=== PATIENT | female | born 1980 | race Hispanic/Latino ===

== ENCOUNTER 2017-12-18 12:47 | Emergency (ER) | payer OTHER ==
[2017-12-18] MEDS ORDERED: MOXIFLOXACIN HCL 0.5% 3ML DROPS OP SCH (14:01)
== END 2017-12-18 14:32 | disposition home or self-care (01) ==
LOC: EDH 12:47
DX: H18.822 Corneal disorder due to contact lens, left eye (principal); Z88.0 Allergy status to penicillin

== ENCOUNTER 2018-06-20 15:36 | Emergency (ER) | payer OTHER ==
[2018-06-20] MEDS ORDERED: ONDANSETRON ODT 4 MG TAB ONE (16:29)
[2018-06-20 16:38] LABS: APPEARANCE,URINE Clear (CLEAR); BILIRUBIN,URINE Negative (NEGATIVE); COLOR,URINE Yellow (YELLOW); GLUCOSE, URINE (UA) >=1000 mg/dL (NEGATIVE); KETONES,URINE Negative (NEGATIVE); LEUKOCYTE ESTERASE ,URINE Negative (NEGATIVE); NITRATE,URINE Negative (NEGATIVE); OCCULT BLOOD,URINE Trace (NEGATIVE); PROTEIN,URINE Negative (NEGATIVE); UROBILINOGEN,URINE 0.2 mg/dL (0.2-1.0)
[2018-06-20 16:50] LABS: RAPID GROUP A STREP NEGATIVE (NEGATIVE)
[2018-06-20 17:28] LABS: BACTERIA,URINE Few /HPF (None Seen); SQUAMOUS EPITHELIAL CELL,UR Few /HPF (0-2)
== END 2018-06-20 17:54 | disposition home or self-care (01) ==
LOC: EDH 15:36
DX: K52.9 Noninfective gastroenteritis and colitis, unspecified (principal); B34.9 Viral infection, unspecified; Z88.0 Allergy status to penicillin; Z98.51 Tubal ligation status; Z90.49 Acquired absence of other specified parts of digestive tract; Z72.0 Tobacco use
CPT/HCPCS: 81001; 81025; 87804; 87880

== ENCOUNTER 2018-10-30 21:43 | Emergency (ER) | payer OTHER ==
[2018-10-30 22:07] LABS: BASOPHILS % (AUTO) 0.8 % (0.0-5.0); EOSINOPHILS % (AUTO) 1.7 % (0.0-8.0); HEMATOCRIT 43.8 % (36-48); LYMPHOCYTES % (AUTO) 22.1 % (21.0-51.0); MEAN CORPUSCULAR HEMOGLOBIN 30.7 pg (27.0-33.0); MEAN CORPUSCULAR HGB CONC 33.9 g/dL (32.0-36.0); MEAN CORPUSCULAR VOLUME 90.6 fL (79-99); MONOCYTES % (AUTO) 4.1 % (3.0-13.0); NEUTROPHILS % (AUTO) 71.3 % (40.0-77.0); NUCLEATED RED BLOOD CELLS 0.1 % (0.0-0.19); PLATELET COUNT (AUTO) 269 K/uL (130-400); RED BLOOD CELL COUNT(AUTO) 4.83 MIL/uL (4.00-5.50); RED CELL DISTRIBUTION WIDTH 13.1 % (11.0-15.5); WHITE BLOOD COUNT (AUTO) 14.4 K/uL (4.8-10.8)
[2018-10-30 22:12] LABS: APPEARANCE,URINE Clear (CLEAR); BILIRUBIN,URINE Negative (NEGATIVE); COLOR,URINE Yellow (YELLOW); GLUCOSE, URINE (UA) >=1000 mg/dL (NEGATIVE); KETONES,URINE Negative (NEGATIVE); LEUKOCYTE ESTERASE ,URINE Negative (NEGATIVE); NITRATE,URINE Negative (NEGATIVE); OCCULT BLOOD,URINE Negative (NEGATIVE); PH,URINE 5.5 (5.0-8.0); PROTEIN,URINE POS 1+ mg/dL (NEGATIVE)
[2018-10-30 22:19] LABS: AMPHET/METH SCREEN,URINE POSITIVE (NEGATIVE); BARBITURATE SCREEN, URINE NEGATIVE (NEGATIVE); BENZODIAZEPINES SCREEN,URINE NEGATIVE (NEGATIVE); CANNABINOID SCREEN,URINE POSITIVE (NEGATIVE); COCAINE SCREEN,URINE NEGATIVE (NEGATIVE); OPIATE SCREEN,URINE NEGATIVE (NEGATIVE); PHENCYCLIDINE SCREEN,URINE NEGATIVE (NEGATIVE)
[2018-10-30 22:26] LABS: ALANINE AMINOTRANSFERASE 19 U/L (12-78); ALBUMIN 2.6 g/dL (3.5-5.0); ASPARTATE AMINOTRANSFERASE 12 U/L (10-37); BILIRUBIN,TOTAL 0.2 mg/dL (0.2-1.0); CARBON DIOXIDE 24 mmol/L (21-32); CHLORIDE 100 mmol/L (101-111); CREATINE KINASE, TOTAL 48 U/L (21-232); CREATININE 0.9 mg/dL (0.5-1.5); GLOMERULAR FILTR. RATE CALC 75 mL/min (>60); POTASSIUM 3.8 mmol/L (3.5-5.1); SODIUM SERUM 135 mmol/L (136-145); TOTAL PROTEIN, SERUM 6.1 g/dL (6.0-8.3); UREA NITROGEN, BLOOD 9 mg/dL (7-18)
[2018-10-30 22:30] LABS: ACETAMINOPHEN 34 mcg/mL (10-30); GLUCOSE,RANDOM 470 mg/dL (70-105); SALICYLATE < 2.8 mg/dL (2.8-20.0)
[2018-10-30 22:33] LABS: ALCOHOL, BLOOD < 3 mg/dL (0-10)
[2018-10-30 22:39] LABS: AMORPHOUS SEDIMENT,UR Few /LPF (None Seen); BACTERIA,URINE Moderate /HPF (None Seen); MUCUS,URINE Few LPF (None Seen); RBC,URINE 0-1 /HPF (0-1)
[2018-10-30] MEDS ORDERED: SODIUM CHLORIDE 0.9% 1000ML 1,000 ML IV ONE (22:48)
[2018-10-30] MEDS ORDERED: INSULIN HUMULIN R 100 UNIT/ML 3ML ONE (22:48)
[2018-10-31 11:53] LABS: ABG BASE EXCESS -1.5 mmol/L (-2.0-3.0); ABG HCO3 23.1 mmol/L (21.0-28.0); ABG OXYGEN SATURATION 97.6 % (95.0-99.0); ABG PCO2 39 mmHg (32-45)
== END 2018-10-31 00:15 | disposition home or self-care (01) ==
LOC: EDH 21:43
DX: R41.82 Altered mental status, unspecified (principal); E86.0 Dehydration; I10 Essential (primary) hypertension; E78.5 Hyperlipidemia, unspecified; Z88.0 Allergy status to penicillin; Z90.49 Acquired absence of other specified parts of digestive tract
CPT/HCPCS: 36415; 36600; 70450; 80053; 80305; 81001; 81025; 82009; 82140; 82550; 82803; 82948 ×2; 84484; 85025; 93005; 96361; 96374; 99285; G0480 ×2; G0481; J1815; J7030

== ENCOUNTER 2018-12-06 00:57 | Emergency (ER) | payer OTHER ==
[2018-12-06 01:58] LABS: APPEARANCE,URINE Turbid (CLEAR); BILIRUBIN,URINE Negative (NEGATIVE); COLOR,URINE Dark Yellow (YELLOW); GLUCOSE, URINE (UA) >=1000 mg/dL (NEGATIVE); KETONES,URINE 15 mg/dL (NEGATIVE); LEUKOCYTE ESTERASE ,URINE Moderate (NEGATIVE); NITRATE,URINE Negative (NEGATIVE); OCCULT BLOOD,URINE Large (NEGATIVE); PH,URINE 5.5 (5.0-8.0); PROTEIN,URINE 300 mg/dL (NEGATIVE)
[2018-12-06 02:02] LABS: HCG,QUAL RESULT NEGATIVE (NEGATIVE)
[2018-12-06 02:10] LABS: BACTERIA,URINE Moderate /HPF (None Seen); MUCUS,URINE Moderate LPF (None Seen); RBC,URINE 51-100 /HPF (0-1); SQUAMOUS EPITHELIAL CELL,UR Few /HPF (0-2); WBC,URINE TNTC /HPF (0-1)
[2018-12-06] MEDS ORDERED: CEFTRIAXONE SODIUM 1 GM ONE (02:31)
[2018-12-06] MEDS ORDERED: LIDOCAINE HCL-MPF 1% 2ML VIAL ONE (02:32)
[2018-12-06] MEDS ORDERED: ACETAMINOPHEN EXTRA STRENGTH 500 MG TABLET ONE (03:03)
== END 2018-12-06 03:20 | disposition home or self-care (01) ==
LOC: EDH 00:57
DX: N30.91 Cystitis, unspecified with hematuria (principal); E11.9 Type 2 diabetes mellitus without complications; Z90.49 Acquired absence of other specified parts of digestive tract; Z88.0 Allergy status to penicillin
CPT/HCPCS: 81001; 81025; 99284; J0696; J3490

== ENCOUNTER 2019-04-17 16:26 | Emergency (ER) | payer OTHER ==
[2019-04-17] MEDS ORDERED: ACETAMINOPHEN-CODEINE 300/30MG TAB ONE (16:55)
== END 2019-04-17 18:03 | disposition home or self-care (01) ==
LOC: EDH 16:26
DX: S76.101A Unspecified injury of right quadriceps muscle, fascia and tendon, initial encounter (principal); W18.39XA Other fall on same level, initial encounter; Y93.02 Activity, running; Y92.89 Other specified places as the place of occurrence of the external cause; Y99.8 Other external cause status
CPT/HCPCS: 29505; 73562

== ENCOUNTER 2019-07-16 20:18 | Emergency (ER) | payer OTHER | END 2019-07-16 22:27 | disposition home or self-care (01) | LOC: EDH 20:18 | DX: S40.011A Contusion of right shoulder, initial encounter (principal); E11.9 Type 2 diabetes mellitus without complications; Z90.49 Acquired absence of other specified parts of digestive tract; Z72.0 Tobacco use; Z88.6 Allergy status to analgesic agent; Z88.0 Allergy status to penicillin; Z88.5 Allergy status to narcotic agent; Y04.0XXA Assault by unarmed brawl or fight, initial encounter; Y93.89 Activity, other specified; Y92.89 Other specified places as the place of occurrence of the external cause; Y99.8 Other external cause status | CPT/HCPCS: 73030 ==

== ENCOUNTER 2019-09-02 21:41 | Emergency (ER) | payer OTHER, SELFPAY ==
[2019-09-02] MEDS ORDERED: SODIUM CHLORIDE 0.9% 1000ML 1,000 ML IV ONE (22:00)
[2019-09-02] MEDS ORDERED: ACETAMINOPHEN EXTRA STRENGTH 500 MG TABLET ONE (22:01)
[2019-09-02 22:43] LABS: BASOPHILS % (AUTO) 0.4 % (0.0-5.0); EOSINOPHILS % (AUTO) 0.5 % (0.0-8.0); HEMATOCRIT 40.7 % (36-48); LYMPHOCYTES % (AUTO) 15.5 % (21.0-51.0); MEAN CORPUSCULAR HEMOGLOBIN 29.6 pg (27.0-33.0); MEAN CORPUSCULAR HGB CONC 35.4 g/dL (32.0-36.0); MEAN CORPUSCULAR VOLUME 83.7 fL (79-99); MONOCYTES % (AUTO) 4.1 % (3.0-13.0); NEUTROPHILS % (AUTO) 78.9 % (40.0-77.0); PLATELET COUNT (AUTO) 201 K/uL (130-400); RED BLOOD CELL COUNT(AUTO) 4.86 MIL/uL (4.00-5.50); RED CELL DISTRIBUTION WIDTH 13.3 % (11.0-15.5); WHITE BLOOD COUNT (AUTO) 11.3 K/uL (4.8-10.8)
[2019-09-02 23:06] LABS: CREATININE 0.8 mg/dL (0.5-1.5); POTASSIUM 3.6 mmol/L (3.5-5.1)
[2019-09-02 23:16] LABS: ALBUMIN 2.9 g/dL (3.5-5.0); BILIRUBIN,TOTAL 0.4 mg/dL (0.2-1.0); TOTAL PROTEIN, SERUM 6.4 g/dL (6.0-8.3)
[2019-09-02 23:33] LABS: APPEARANCE,URINE Cloudy (CLEAR); BILIRUBIN,URINE Negative (NEGATIVE); COLOR,URINE Yellow (YELLOW); GLUCOSE, URINE (UA) >=1000 mg/dL (NEGATIVE); KETONES,URINE 15 mg/dL (NEGATIVE); LEUKOCYTE ESTERASE ,URINE Moderate (NEGATIVE); NITRATE,URINE Positive (NEGATIVE); OCCULT BLOOD,URINE Negative (NEGATIVE); PROTEIN,URINE Negative (NEGATIVE); UROBILINOGEN,URINE 0.2 mg/dL (0.2-1.0)
[2019-09-02 23:52] LABS: RBC,URINE 0-1 /HPF (0-1)
[2019-09-02 23:59] LABS: BACTERIA,URINE Moderate /HPF (None Seen); TRICHOMONAS,URINE Few /LPF (None Seen)
[2019-09-03] MEDS ORDERED: CEFTRIAXONE SODIUM 1 GM ONE (00:02)
[2019-09-03] MEDS ORDERED: KETOROLAC TROMETHAMINE 30MG/ML ONE (01:35)
[2019-09-03] MEDS ORDERED: METOCLOPRAMIDE 10 MG/2 ML VIAL ONE (01:35)
== END 2019-09-03 01:58 | disposition home or self-care (01) ==
LOC: EDH 21:41
DX: N39.0 Urinary tract infection, site not specified (principal); R50.9 Fever, unspecified; R11.10 Vomiting, unspecified; Z20.828 Contact with and (suspected) exposure to other viral communicable diseases; E11.9 Type 2 diabetes mellitus without complications; Z88.0 Allergy status to penicillin; Z88.6 Allergy status to analgesic agent; Z88.1 Allergy status to other antibiotic agents; Z98.51 Tubal ligation status
CPT/HCPCS: 36415; 80053; 81001; 83605; 83690; 84702; 85025; 87077; 87088; 87186; 87804 ×2; 96361 ×2; 96374; 96375; 99284; J0696; J1885; J2765; J7030; U0003

== ENCOUNTER 2020-03-13 16:08 | Emergency (ER) | payer OTHER ==
[2020-03-13 17:23] LABS: BASOPHILS % (AUTO) 0.4 % (0.0-5.0); HEMATOCRIT 38.9 % (36-48); LYMPHOCYTES % (AUTO) 18.6 % (21.0-51.0); MEAN CORPUSCULAR HGB CONC 35.5 g/dL (32.0-36.0); MEAN CORPUSCULAR VOLUME 87.4 fL (79-99); MONOCYTES % (AUTO) 4.8 % (3.0-13.0); NEUTROPHILS % (AUTO) 74.9 % (40.0-77.0); PLATELET COUNT (AUTO) 248 K/uL (130-400); RED BLOOD CELL COUNT(AUTO) 4.45 MIL/uL (4.00-5.50); RED CELL DISTRIBUTION WIDTH 12.8 % (11.0-15.5); WHITE BLOOD COUNT (AUTO) 12.3 K/uL (4.8-10.8)
[2020-03-13 17:39] LABS: APPEARANCE,URINE Turbid (CLEAR); BILIRUBIN,URINE Small (NEGATIVE); COLOR,URINE Dark Yellow (YELLOW); GLUCOSE, URINE (UA) TRACE mg/dL (NEGATIVE); HCG,QUAL RESULT NEGATIVE (NEGATIVE); KETONES,URINE 40 mg/dL (NEGATIVE); LEUKOCYTE ESTERASE ,URINE Large (NEGATIVE); NITRATE,URINE Negative (NEGATIVE); OCCULT BLOOD,URINE Large (NEGATIVE); PROTEIN,URINE POS 2+ mg/dL (NEGATIVE)
[2020-03-13 17:57] LABS: CREATININE 0.7 mg/dL (0.5-1.5); POTASSIUM 3.4 mmol/L (3.5-5.1)
[2020-03-13 18:01] LABS: ALBUMIN 3.4 g/dL (3.5-5.0); BILIRUBIN,TOTAL 0.5 mg/dL (0.2-1.0); TOTAL PROTEIN, SERUM 6.7 g/dL (6.0-8.3)
[2020-03-13 18:26] LABS: BACTERIA,URINE Few /HPF (None Seen); RBC,URINE TNTC /HPF (0-1); SQUAMOUS EPITHELIAL CELL,UR None Seen /HPF (0-2); WBC,URINE TNTC /HPF (0-1)
== END 2020-03-13 19:39 | disposition home or self-care (01) ==
LOC: EDH 16:08
DX: N39.0 Urinary tract infection, site not specified (principal); E11.9 Type 2 diabetes mellitus without complications; Z90.49 Acquired absence of other specified parts of digestive tract; Z88.0 Allergy status to penicillin; Z88.5 Allergy status to narcotic agent; Z88.6 Allergy status to analgesic agent
CPT/HCPCS: 36415; 74176; 76856; 80053; 81001; 81025; 83605; 83690; 85025; 87040; 87077; 87088; 87186; 96360; 96361

== ENCOUNTER 2021-04-18 15:40 | Emergency (ER) | payer OTHER ==
[~2021-04-18] VITALS: Ht 167.6 cm; Wt 75.7 kg
[2021-04-18] MEDS ORDERED: LORAZEPAM 1 MG TABLET PO ONE (21:00)
[2021-04-18 21:55] VITALS: BP 118/68
== END 2021-04-18 21:56 | disposition home or self-care (01) ==
LOC: EDH 15:40
DX: N93.9 Abnormal uterine and vaginal bleeding, unspecified (principal); F41.9 Anxiety disorder, unspecified; Z88.0 Allergy status to penicillin; Z88.6 Allergy status to analgesic agent
CPT/HCPCS: 36415; 84703

== ENCOUNTER 2021-06-16 19:41 | Inpatient (IN) | payer OTHER ==
[~2021-06-16] VITALS: Ht 167.6 cm; Wt 80.4 kg
[2021-06-16 20:00] LABS: BASOPHILS % (AUTO) 0.3 % (0.0-5.0); EOSINOPHILS % (AUTO) 0.4 % (0.0-8.0); HEMATOCRIT 29.2 % (36-48); LYMPHOCYTES % (AUTO) 15.5 % (21.0-51.0); MEAN CORPUSCULAR HEMOGLOBIN 29.4 pg (27.0-33.0); MEAN CORPUSCULAR HGB CONC 34.6 g/dL (32.0-36.0); MEAN CORPUSCULAR VOLUME 84.9 fL (79-99); MONOCYTES % (AUTO) 5.7 % (3.0-13.0); NEUTROPHILS % (AUTO) 77.6 % (40.0-77.0); PLATELET COUNT (AUTO) 172 K/uL (130-400); RED BLOOD CELL COUNT(AUTO) 3.44 MIL/uL (4.00-5.50); RED CELL DISTRIBUTION WIDTH 13.2 % (11.0-15.5); WHITE BLOOD COUNT (AUTO) 9.1 K/uL (4.8-10.8)
[2021-06-16] MEDS ORDERED: 0.9%NACL 1000ML 1,000 ML IV ONE ×3 (20:00→23:00)
[2021-06-16 20:12] LABS: CREATININE 0.7 mg/dL (0.5-1.5); POTASSIUM 3.5 mmol/L (3.5-5.1)
[2021-06-16 20:17] LABS: ALBUMIN 2.3 g/dL (3.5-5.0); BILIRUBIN,TOTAL 0.3 mg/dL (0.2-1.0); TOTAL PROTEIN, SERUM 6.3 g/dL (6.0-8.3)
[2021-06-16 20:36] LABS: APPEARANCE,URINE Clear (CLEAR); BILIRUBIN,URINE Negative (NEGATIVE); COLOR,URINE Yellow (YELLOW); GLUCOSE, URINE (UA) >=1000 mg/dL (NEGATIVE); KETONES,URINE Negative (NEGATIVE); LEUKOCYTE ESTERASE ,URINE Trace (NEGATIVE); NITRATE,URINE Negative (NEGATIVE); OCCULT BLOOD,URINE Negative (NEGATIVE); PH,URINE 6.5 (5.0-8.0); PROTEIN,URINE Negative (NEGATIVE); UROBILINOGEN,URINE 0.2 mg/dL (0.2-1.0)
[2021-06-16 20:43] LABS: BACTERIA,URINE Few /HPF (None Seen); RBC,URINE 0-1 /HPF (0-1); SQUAMOUS EPITHELIAL CELL,UR Few /HPF (0-2)
[2021-06-16 20:44] LABS: TRANSITIONAL EPI CELLS,URINE Rare /HPF (None Seen)
[2021-06-16 20:55] LABS: ABG OXYGEN SATURATION 81.8 % (95.0-99.0); BASE EXCESS,VENOUS BLOOD GAS -2.7 (-2.0-3.0); PCO2,VENOUS BLOOD GAS 32 (32-45)
[2021-06-16 20:56] LABS: HCG,QUAL RESULT NEGATIVE (NEGATIVE)
[2021-06-16] MEDS ORDERED: METOCLOPRAMIDE 10 MG/2 ML VIAL IVP ONE (21:00)
[2021-06-16] MEDS ORDERED: PANTOPRAZOLE 40 MG/VIAL IVP ONE (21:00)
[2021-06-16] MEDS ORDERED: ONDANSETRON 4MG INJ IVP ONE (21:00)
[2021-06-16] MEDS ORDERED: FAMOTIDINE 20MG VIAL IV ONE (21:00)
[2021-06-16] MEDS ORDERED: DiphenhydrAMINE HCL 50 MG/ML VIAL IV ONE (21:00)
[2021-06-16] MEDS ORDERED: IOHEXOL 350 MG/ML 100ML INFUS..BTL IV ONE (21:02)
[2021-06-16] MEDS ORDERED: LEVOFLOXACIN 750 MG/D5W 150 ML 150 ML IV ONE (23:00)
[2021-06-17] MEDS ORDERED: ACETAMINOPHEN 500 MG TABLET ONE (00:10)
[2021-06-17] MEDS ORDERED: ACETAMINOPHEN 500 MG TABLET PO ONE (00:30)
[2021-06-17 01:28] LABS: AMPHET/METH SCREEN,URINE NEGATIVE (NEGATIVE); BARBITURATE SCREEN, URINE NEGATIVE (NEGATIVE); BENZODIAZEPINES SCREEN,URINE NEGATIVE (NEGATIVE); CANNABINOID SCREEN,URINE POSITIVE (NEGATIVE); COCAINE SCREEN,URINE NEGATIVE (NEGATIVE); OPIATE SCREEN,URINE NEGATIVE (NEGATIVE); PHENCYCLIDINE SCREEN,URINE NEGATIVE (NEGATIVE)
[2021-06-17] MEDS ORDERED: INSULIN HUMULIN R 100 UNIT/ML 3ML IV ONE (01:30)
[2021-06-17] MEDS ORDERED: ONDANSETRON 4MG INJ IVP ONE (01:30)
[2021-06-17] MEDS ORDERED: MORPHINE 2 MG SYG IVP ONE (01:30)
[2021-06-17] MEDS ORDERED: KETOROLAC 30MG VIAL (30MG/ML) IVP PRN (02:00)
[2021-06-17] MEDS ORDERED: ONDANSETRON 4MG INJ IV PRN (02:00)
[2021-06-17] MEDS ORDERED: ACETAMINOPHEN 325 MG TAB PO PRN ×2 (02:00)
[2021-06-17 02:40] LABS: HEMOGLOBIN A1C 11.2 % (4.0-6.0)
[2021-06-17] MEDS: 0.9%NACL 1000ML 1,000 ML IV SCH ×2 (02:45→17:53)
[2021-06-17 03:20] VITALS: BP 110/57
[2021-06-17] MEDS: INSULIN HUMULIN R 100 UNIT/ML 3ML SQ SCH ×4 (06:15→21:29)
[2021-06-17] MEDS: LEVOFLOXACIN 500 MG/D5W 100 ML 100 ML IV SCH (06:23)
[2021-06-17 08:00] VITALS: BP 127/61
[2021-06-17] MEDS: ACETAMINOPHEN WITH CODEINE 1 TAB TAB PO PRN ×3 (08:21→22:19)
[2021-06-17] MEDS: FAMOTIDINE 20MG TAB PO SCH ×2 (08:21→21:23)
[2021-06-17] MEDS: ENOXAPARIN SODIUM 40 MG/0.4 ML SYRINGE SQ SCH (08:24)
[2021-06-17 12:00] VITALS: BP 137/86
[2021-06-17 16:00] VITALS: BP 118/68
[2021-06-17 19:59] VITALS: BP 114/60
[2021-06-17 23:23] VITALS: BP 128/66
[2021-06-18] MEDS: 0.9%NACL 1000ML 1,000 ML IV SCH (02:00)
[2021-06-18] MEDS: LEVOFLOXACIN 500 MG/D5W 100 ML 100 ML IV SCH (02:00)
[2021-06-18 04:15] VITALS: BP 103/60
[2021-06-18 05:00] LABS: BASOPHILS % (AUTO) 0.5 % (0.0-5.0); EOSINOPHILS % (AUTO) 0.9 % (0.0-8.0); HEMATOCRIT 25.9 % (36-48); LYMPHOCYTES % (AUTO) 26.2 % (21.0-51.0); MEAN CORPUSCULAR HEMOGLOBIN 29.4 pg (27.0-33.0); MEAN CORPUSCULAR HGB CONC 33.6 g/dL (32.0-36.0); MEAN CORPUSCULAR VOLUME 87.5 fL (79-99); NEUTROPHILS % (AUTO) 62.7 % (40.0-77.0); PLATELET COUNT (AUTO) 198 K/uL (130-400); RED BLOOD CELL COUNT(AUTO) 2.96 MIL/uL (4.00-5.50); RED CELL DISTRIBUTION WIDTH 13.5 % (11.0-15.5); WHITE BLOOD COUNT (AUTO) 5.8 K/uL (4.8-10.8)
[2021-06-18] MEDS: INSULIN HUMULIN R 100 UNIT/ML 3ML SQ SCH ×4 (05:02→20:14)
[2021-06-18 05:37] LABS: BILIRUBIN,TOTAL 0.5 mg/dL (0.2-1.0); CREATININE 0.6 mg/dL (0.5-1.5); MAGNESIUM 1.9 mg/dL (1.80-2.40); PHOSPHORUS 4.1 mg/dL (2.5-4.9); POTASSIUM 3.5 mmol/L (3.5-5.1); TOTAL PROTEIN, SERUM 6.1 g/dL (6.0-8.3)
[2021-06-18 08:00] VITALS: BP 114/59
[2021-06-18] MEDS: ACETAMINOPHEN WITH CODEINE 1 TAB TAB PO PRN (09:05)
[2021-06-18] MEDS: FAMOTIDINE 20MG TAB PO SCH ×2 (09:05→19:36)
[2021-06-18] MEDS: ENOXAPARIN SODIUM 40 MG/0.4 ML SYRINGE SQ SCH (09:06)
[2021-06-18 12:00] VITALS: BP 110/59
[2021-06-18 16:00] VITALS: BP 113/70
[2021-06-18 20:30] VITALS: BP 119/69
[2021-06-18 23:16] VITALS: BP 126/76
[2021-06-19] MEDS: LEVOFLOXACIN 500 MG/D5W 100 ML 100 ML IV SCH (01:47)
[2021-06-19 03:55] VITALS: BP 93/52
[2021-06-19 05:12] LABS: BASOPHILS % (AUTO) 0.6 % (0.0-5.0); EOSINOPHILS % (AUTO) 2.1 % (0.0-8.0); HEMATOCRIT 29.9 % (36-48); LYMPHOCYTES % (AUTO) 36.3 % (21.0-51.0); MEAN CORPUSCULAR HEMOGLOBIN 29.1 pg (27.0-33.0); MEAN CORPUSCULAR HGB CONC 33.4 g/dL (32.0-36.0); MEAN CORPUSCULAR VOLUME 86.9 fL (79-99); MONOCYTES % (AUTO) 6.4 % (3.0-13.0); NEUTROPHILS % (AUTO) 53.5 % (40.0-77.0); PLATELET COUNT (AUTO) 274 K/uL (130-400); RED BLOOD CELL COUNT(AUTO) 3.44 MIL/uL (4.00-5.50); RED CELL DISTRIBUTION WIDTH 13.6 % (11.0-15.5); WHITE BLOOD COUNT (AUTO) 5.3 K/uL (4.8-10.8)
[2021-06-19 05:31] LABS: ALBUMIN 2.2 g/dL (3.5-5.0); BILIRUBIN,TOTAL 0.2 mg/dL (0.2-1.0); CREATININE 0.6 mg/dL (0.5-1.5); POTASSIUM 5.1 mmol/L (3.5-5.1); TOTAL PROTEIN, SERUM 6.8 g/dL (6.0-8.3)
[2021-06-19] MEDS: INSULIN HUMULIN R 100 UNIT/ML 3ML SQ SCH ×2 (06:07→12:38)
[2021-06-19 08:00] VITALS: BP 122/52
[2021-06-19] MEDS ORDERED: LEVO500T90 PO (09:33)
[2021-06-19] MEDS ORDERED: BLOO-140 MC (09:33)
[2021-06-19] MEDS ORDERED: METF-890 PO (09:33)
[2021-06-19] MEDS ORDERED: INSLAN SQ (09:33)
[2021-06-19] MEDS: FAMOTIDINE 20MG TAB PO SCH (10:04)
[2021-06-19] MEDS: ENOXAPARIN SODIUM 40 MG/0.4 ML SYRINGE SQ SCH (10:04)
[2021-06-19 12:00] VITALS: BP 101/59
== END 2021-06-19 16:27 | disposition home or self-care (01) | DRG 690 ==
LOC: EDH 19:41 → OBSVTOIN 19:42 → EDHIP 19:42 → 3BH 06-17 03:23
PROVIDERS: ADMIT Internal Medicine; ATTEND Internal Medicine
DX: N12 Tubulo-interstitial nephritis, not specified as acute or chronic (principal); E11.65 Type 2 diabetes mellitus with hyperglycemia; D64.9 Anemia, unspecified; F17.210 Nicotine dependence, cigarettes, uncomplicated; Z20.822 Contact with and (suspected) exposure to COVID-19; Z91.14 Patient's other noncompliance with medication regimen; Z90.49 Acquired absence of other specified parts of digestive tract; Z88.0 Allergy status to penicillin; Z88.1 Allergy status to other antibiotic agents
CPT/HCPCS: 36415; 36600; 74177; 80053; 80305; 81001; 81025; 82010; 82435; 82803; 82947; 82948; 83036; 83605; 83690; 83735; 84100; 84132; 84295; 85025; 87040; 87088; 87635; 87804; C9113; C9803; G0378; J1200; J1650; J1815; J1956; J2405; J2765; J3490; J7030; Q9967

== ENCOUNTER 2021-11-15 20:12 | Emergency (ER) | payer OTHER ==
[~2021-11-15] VITALS: Ht 167.6 cm; Wt 75.3 kg
[~2021-11-15 20:12] MED LIST: BLOO-140 MC; INSLAN SQ; LEVO-70 PO; METF-890 PO
[2021-11-15] MEDS ORDERED: CEPH500B PO (20:44)
[2021-11-15] MEDS ORDERED: ACETAMINOPHEN 500 MG TABLET ONE (20:48)
[2021-11-15] MEDS ORDERED: CLINDAMYCIN 150 MG CAP ONE (20:49)
[2021-11-15 20:58] VITALS: BP 128/75
[2021-11-15] MEDS ORDERED: ACETAMINOPHEN 500 MG TABLET PO ONE (21:00)
[2021-11-15] MEDS ORDERED: CEPHALEXIN 500 MG CAPSULE PO ONE (21:00)
[2021-11-15] MEDS ORDERED: CLINDAMYCIN 150 MG CAP PO ONE (21:00)
== END 2021-11-15 21:05 | disposition home or self-care (01) ==
LOC: EDH 20:12
DX: L03.031 Cellulitis of right toe (principal); E11.9 Type 2 diabetes mellitus without complications; F17.200 Nicotine dependence, unspecified, uncomplicated; Z79.84 Long term (current) use of oral hypoglycemic drugs; Z88.0 Allergy status to penicillin; Z88.6 Allergy status to analgesic agent; Z90.49 Acquired absence of other specified parts of digestive tract

== ENCOUNTER 2022-07-08 00:43 | Emergency (ER) | payer OTHER ==
[~2022-07-08 00:43] MED LIST changes: +CEFU500T67 PO; +CEPH500B PO; +IBUP-2070 PO; +OSEL75 PO; +PHEN-847 PO
[2022-07-08 00:48] VITALS: BP 136/78
[2022-07-08] MEDS ORDERED: METF-890 PO (02:43)
[2022-07-08 03:08] LABS: APPEARANCE,URINE CLEAR (CLEAR); BILIRUBIN,URINE NEGATIVE (NEGATIVE); COLOR,URINE LIGHT-YELLOW (YELLOW); GLUCOSE, URINE (UA) >=1000 mg/dL (NEGATIVE); KETONES,URINE 20 mg/dL (NEGATIVE); LEUKOCYTE ESTERASE ,URINE NEGATIVE Leu/uL (NEGATIVE); MUCUS,URINE FEW LPF (None Seen); NITRATE,URINE NEGATIVE (NEGATIVE); OCCULT BLOOD,URINE LARGE (NEGATIVE); PH,URINE 6.5 (5.0-8.0); PROTEIN,URINE NEGATIVE (NEGATIVE); SQUAMOUS EPITHELIAL CELL,UR FEW /HPF (0-2); UROBILINOGEN,URINE 0.2 mg/dL (0.2-1.0)
== END 2022-07-08 02:53 | disposition home or self-care (01) ==
LOC: EDH 00:43 → EEVIPCON 00:43 → EDH 02:53
DX: E11.9 Type 2 diabetes mellitus without complications (principal); Z02.89 Encounter for other administrative examinations; E66.9 Obesity, unspecified; F17.200 Nicotine dependence, unspecified, uncomplicated; Z65.3 Problems related to other legal circumstances; Z79.84 Long term (current) use of oral hypoglycemic drugs; Z98.890 Other specified postprocedural states; Z88.0 Allergy status to penicillin; Z88.6 Allergy status to analgesic agent
CPT/HCPCS: 81001; 82948

== ENCOUNTER 2022-09-26 15:56 | Emergency (ER) | payer OTHER ==
[~2022-09-26] VITALS: Ht 167.6 cm; Wt 82.6 kg
[~2022-09-26 15:56] MED LIST changes: -BLOO-140 MC; -CEFU500T67 PO; -CEPH500B PO; -IBUP-2070 PO; -LEVO-70 PO; -OSEL75 PO; -PHEN-847 PO
[2022-09-26 16:37] LABS: BASOPHILS % (AUTO) 0.6 % (0.0-5.0); EOSINOPHILS % (AUTO) 2.4 % (0.0-8.0); HEMATOCRIT 37.5 % (36-48); LYMPHOCYTES % (AUTO) 31.1 % (21.0-51.0); MEAN CORPUSCULAR HEMOGLOBIN 29.8 pg (27.0-33.0); MEAN CORPUSCULAR HGB CONC 33.6 g/dL (32.0-36.0); MEAN CORPUSCULAR VOLUME 88.7 fL (79-99); MONOCYTES % (AUTO) 4.5 % (3.0-13.0); NEUTROPHILS % (AUTO) 60.9 % (40.0-77.0); PLATELET COUNT (AUTO) 196 K/uL (130-400); RED BLOOD CELL COUNT(AUTO) 4.23 MIL/uL (4.00-5.50); RED CELL DISTRIBUTION WIDTH 13.2 % (11.0-15.5); WHITE BLOOD COUNT (AUTO) 6.6 K/uL (4.8-10.8)
[2022-09-26 16:38] LABS: APPEARANCE,URINE SL CLOUDY (CLEAR); BILIRUBIN,URINE NEGATIVE (NEGATIVE); COLOR,URINE YELLOW (YELLOW); GLUCOSE, URINE (UA) >=1000 mg/dL (NEGATIVE); KETONES,URINE 5 mg/dL (NEGATIVE); LEUKOCYTE ESTERASE ,URINE NEGATIVE Leu/uL (NEGATIVE); NITRATE,URINE NEGATIVE (NEGATIVE); OCCULT BLOOD,URINE LARGE (NEGATIVE); PROTEIN,URINE 30 mg/dL (NEGATIVE); UROBILINOGEN,URINE 0.2 mg/dL (0.2-1.0)
[2022-09-26 16:41] LABS: HCG,QUALITATIVE URINE NEGATIVE (NEGATIVE)
[2022-09-26 16:48] LABS: BACTERIA,URINE RARE /HPF (None Seen); MUCUS,URINE RARE LPF (None Seen); RBC,URINE TNTC /HPF (0-1); SQUAMOUS EPITHELIAL CELL,UR MOD /HPF (0-2); YEAST,URINE BUDDING RARE /HPF (None Seen)
[2022-09-26 17:25] LABS: CREATININE 0.7 mg/dL (0.5-1.5); POTASSIUM 3.9 mmol/L (3.5-5.1)
[2022-09-26 17:29] LABS: ALBUMIN 3.2 g/dL (3.5-5.0); TOTAL PROTEIN, SERUM 6.2 g/dL (6.0-8.3)
[2022-09-26] MEDS ORDERED: CLINDAMYCIN IVPB 300MG/50ML 50 ML IV SCH (18:30)
[2022-09-26] MEDS ORDERED: 0.9%NACL 1000ML 1,000 ML IV ONE (18:30)
[2022-09-26] MEDS ORDERED: CEPH500B PO (18:39)
[2022-09-26] MEDS ORDERED: CEPHALEXIN 500 MG CAPSULE PO ONE (19:00)
[2022-09-26 19:26] VITALS: BP 121/65
== END 2022-09-26 21:01 | disposition home or self-care (01) ==
LOC: EDH 15:56
DX: L03.011 Cellulitis of right finger (principal); E11.9 Type 2 diabetes mellitus without complications; F17.200 Nicotine dependence, unspecified, uncomplicated; Z79.84 Long term (current) use of oral hypoglycemic drugs; Z90.49 Acquired absence of other specified parts of digestive tract; Z98.890 Other specified postprocedural states; Z88.0 Allergy status to penicillin; Z88.6 Allergy status to analgesic agent; Z88.8 Allergy status to other drugs, medicaments and biological substances
CPT/HCPCS: 99284; 96360; 80053; 85025; 87040 ×2; 87088; 83605 ×2; 81001; 81025; 36415; 73140; J7030; J3490

== ENCOUNTER 2023-05-18 15:26 | Emergency (ER) | payer OTHER ==
[~2023-05-18] VITALS: Ht 167.6 cm; Wt 68.0 kg
[~2023-05-18 15:26] MED LIST changes: +CEPH500B PO
[2023-05-18 16:06] LABS: BASOPHILS # (AUTO) 0.04 K/uL (0.00-0.20); BASOPHILS % (AUTO) 0.6 % (0.0-5.0); EOSINOPHILS # (AUTO) 0.12 K/uL (0.00-0.70); EOSINOPHILS % (AUTO) 1.7 % (0.0-8.0); HEMATOCRIT 38.7 % (36-48); IMMATURE GRANULOCYTE ABSOLUTE 0.07 K/uL (0-1); LYMPHOCYTES # (AUTO) 1.1 K/uL (1.0-4.8); LYMPHOCYTES % (AUTO) 15.6 % (21.0-51.0); MEAN CORPUSCULAR HEMOGLOBIN 31.3 pg (27.0-33.0); MEAN CORPUSCULAR HGB CONC 35.1 g/dL (32.0-36.0); MONOCYTES # (AUTO) 0.5 K/uL (0.1-1.0); MONOCYTES % (AUTO) 6.6 % (3.0-13.0); NEUTROPHILS # (AUTO) 5.2 K/uL (1.8-7.7); NEUTROPHILS % (AUTO) 74.5 % (40.0-77.0); PLATELET COUNT (AUTO) 183 K/uL (130-400); RED BLOOD CELL COUNT(AUTO) 4.35 MIL/uL (4.00-5.50); RED CELL DISTRIBUTION WIDTH 12.8 % (11.0-15.5)
[2023-05-18] MEDS: ONDANSETRON 4MG INJ IVP ONE (16:09)
[2023-05-18 16:15] LABS: CREATININE 0.8 mg/dL (0.5-1.5); POTASSIUM 3.8 mmol/L (3.5-5.1)
[2023-05-18 16:19] LABS: ALBUMIN 2.9 g/dL (3.5-5.0); BILIRUBIN,TOTAL 0.3 mg/dL (0.2-1.0); TOTAL PROTEIN, SERUM 5.9 g/dL (6.0-8.3)
[2023-05-18] MEDS: KETOROLAC 30MG VIAL (30MG/ML) IVP ONE (16:23)
[2023-05-18 18:39] VITALS: BP 111/82; PULSE 83; RESP 18; O2SAT 98
[2023-05-18] MEDS ORDERED: ONDA4TAB10 PO (18:43)
[2023-05-18] MEDS ORDERED: FAMO20TA8 PO (18:43)
== END 2023-05-18 18:30 | disposition home or self-care (01) ==
LOC: EDH 15:26
DX: R10.9 Unspecified abdominal pain (principal); E11.9 Type 2 diabetes mellitus without complications; Z79.84 Long term (current) use of oral hypoglycemic drugs; Z79.899 Other long term (current) drug therapy; Z98.890 Other specified postprocedural states; Z88.0 Allergy status to penicillin; Z88.6 Allergy status to analgesic agent
CPT/HCPCS: 99285; 74176; 96374; 96375; 80053; 84703; 83690; 85025; 36415; J2405; J1885

== ENCOUNTER 2023-07-02 15:47 | Inpatient (IN) | payer OTHER ==
[~2023-07-02] VITALS: Ht 167.6 cm; Wt 87.2 kg
[~2023-07-02 15:47] MED LIST changes: +FAMO20TA8 PO; +ONDA4TAB10 PO
[2023-07-02] MEDS: ONDANSETRON ODT 4MG TAB SL ONE (17:55)
[2023-07-02] MEDS: ACETAMINOPHEN 500 MG TABLET PO ONE (17:55)
[2023-07-02 20:33] VITALS: TEMP 98.3
[2023-07-02 21:18] LABS: BASOPHILS # (AUTO) 0.02 K/uL (0.00-0.20); BASOPHILS % (AUTO) 0.4 % (0.0-5.0); EOSINOPHILS # (AUTO) 0.02 K/uL (0.00-0.70); EOSINOPHILS % (AUTO) 0.4 % (0.0-8.0); HEMATOCRIT 44.5 % (36-48); IMMATURE GRANULOCYTE ABSOLUTE 0.06 K/uL (0-1); LYMPHOCYTES # (AUTO) 0.9 K/uL (1.0-4.8); LYMPHOCYTES % (AUTO) 15.8 % (21.0-51.0); MEAN CORPUSCULAR HEMOGLOBIN 31.6 pg (27.0-33.0); MEAN CORPUSCULAR HGB CONC 35.1 g/dL (32.0-36.0); MEAN CORPUSCULAR VOLUME 90.1 fL (79-99); MONOCYTES # (AUTO) 0.3 K/uL (0.1-1.0); MONOCYTES % (AUTO) 4.7 % (3.0-13.0); NEUTROPHILS # (AUTO) 4.2 K/uL (1.8-7.7); NEUTROPHILS % (AUTO) 77.6 % (40.0-77.0); PLATELET COUNT (AUTO) 194 K/uL (130-400); RED BLOOD CELL COUNT(AUTO) 4.94 MIL/uL (4.00-5.50); RED CELL DISTRIBUTION WIDTH 12.6 % (11.0-15.5); WHITE BLOOD COUNT (AUTO) 5.4 K/uL (4.8-10.8)
[2023-07-02] MEDS: MORPHINE 2 MG SYG IVP ONE (21:19)
[2023-07-02] MEDS: HALOPERIDOL INJ 5 MG/ML VIAL IV ONE (21:20)
[2023-07-02 21:24] LABS: APPEARANCE,URINE CLEAR (CLEAR); BILIRUBIN,URINE NEGATIVE (NEGATIVE); COLOR,URINE YELLOW (YELLOW); GLUCOSE, URINE (UA) 500 mg/dL (NEGATIVE); KETONES,URINE 60 mg/dL (NEGATIVE); LEUKOCYTE ESTERASE ,URINE NEGATIVE Leu/uL (NEGATIVE); NITRATE,URINE NEGATIVE (NEGATIVE); OCCULT BLOOD,URINE NEGATIVE (NEGATIVE); PROTEIN,URINE 30 mg/dL (NEGATIVE); UROBILINOGEN,URINE 3 mg/dL (0.2-1.0)
[2023-07-02 21:32] LABS: ADD UA MICROSCOPIC YES
[2023-07-02 21:33] LABS: CREATININE 0.8 mg/dL (0.5-1.0); POTASSIUM 3.5 mmol/L (3.5-5.1)
[2023-07-02 21:33] LABS: BACTERIA,URINE RARE /HPF (None Seen); MUCUS,URINE RARE LPF (None Seen); RBC,URINE 0-1 /HPF (0-1); SQUAMOUS EPITHELIAL CELL,UR FEW /HPF (0-2)
[2023-07-02] MEDS ORDERED: IOHEXOL-350 75 ML VIAL IV ONE (21:44)
[2023-07-02 21:55] LABS: BILIRUBIN,TOTAL 0.9 mg/dL (0.2-1.0); TOTAL PROTEIN, SERUM 6.7 g/dL (6.0-8.3)
[2023-07-02] MEDS ORDERED: DEXTROSE 50%-WATER 50 ML DISP.SYRIN IV PRN (23:00)
[2023-07-02] MEDS ORDERED: GLUCAGON 1MG KIT 1 MG ML IM PRN (23:00)
[2023-07-02] MEDS ORDERED: MORPHINE 2 MG SYG IVP PRN (23:00)
[2023-07-02] MEDS: LACTATED RINGERS 1000ML 1,000 ML IV SCH (23:41)
[2023-07-02 23:56] VITALS: BP 142/64; PULSE 87; RESP 24; O2SAT 95
[2023-07-03] VITALS (7 sets, daily range): BP systolic 109–143; BP diastolic 63–79; PULSE 59–72; RESP 17–22; O2SAT 96–97
[2023-07-03] MEDS: INSULIN HUMULIN R 100 UNIT/ML 3ML SQ SCH (00:30)
[2023-07-03 06:10] LABS: BASOPHILS # (AUTO) 0.02 K/uL (0.00-0.20); BASOPHILS % (AUTO) 0.6 % (0.0-5.0); EOSINOPHILS # (AUTO) 0.11 K/uL (0.00-0.70); EOSINOPHILS % (AUTO) 3.1 % (0.0-8.0); HEMATOCRIT 36.8 % (36-48); IMMATURE GRANULOCYTE ABSOLUTE 0.04 K/uL (0-1); LYMPHOCYTES # (AUTO) 0.8 K/uL (1.0-4.8); LYMPHOCYTES % (AUTO) 23.7 % (21.0-51.0); MEAN CORPUSCULAR HGB CONC 35.1 g/dL (32.0-36.0); MEAN CORPUSCULAR VOLUME 88.5 fL (79-99); MONOCYTES # (AUTO) 0.2 K/uL (0.1-1.0); MONOCYTES % (AUTO) 6.5 % (3.0-13.0); NEUTROPHILS # (AUTO) 2.3 K/uL (1.8-7.7); PLATELET COUNT (AUTO) 159 K/uL (130-400); RED BLOOD CELL COUNT(AUTO) 4.16 MIL/uL (4.00-5.50); RED CELL DISTRIBUTION WIDTH 12.6 % (11.0-15.5); WHITE BLOOD COUNT (AUTO) 3.6 K/uL (4.8-10.8)
[2023-07-03 06:22] LABS: HEMOGLOBIN A1C 10.6 % (4.0-6.0)
[2023-07-03 06:38] LABS: ALBUMIN 2.4 g/dL (3.5-5.0); CREATININE 0.7 mg/dL (0.5-1.0); POTASSIUM 3.2 mmol/L (3.5-5.1); TOTAL PROTEIN, SERUM 5.5 g/dL (6.0-8.3)
[2023-07-03] MEDS ORDERED: INSULIN HUMULIN R 100 UNIT/ML 3ML SQ SCH (07:30)
[2023-07-03] MEDS: POTASSIUM CHLORIDE 20MEQ/100ML 100 ML IV PRN (07:43)
[2023-07-03] MEDS: LEVOFLOXACIN 750 MG/D5W 150 ML 150 ML IV SCH (08:32)
[2023-07-03] MEDS: FAMOTIDINE 20MG VIAL IV SCH (08:33)
[2023-07-04] VITALS (30 sets, daily range): BP systolic 114–170; BP diastolic 56–94; PULSE 61–110; RESP 17–20; O2SAT 96–97
[2023-07-04 01:11] LABS: HEPATITIS A IGM ANTIBODY Non-Reactive (Nonreactive); HEPATITIS B CORE IGM ANTIBODY Non-Reactive (Negative); HEPATITIS B SURFACE ANTIGEN Non-Reactive (Nonreactive); HEPATITIS C ANTIBODY Non-Reactive (Nonreactive)
[2023-07-04 04:40] LABS: CREATININE 0.6 mg/dL (0.5-1.0); POTASSIUM 3.4 mmol/L (3.5-5.1)
[2023-07-04] MEDS ORDERED: BUPIVACAINE/PF 0.25% 30ML VIAL IJ ONE (09:58)
[2023-07-04] MEDS ORDERED: LIDOCAINE 1%-EPI 1:100,000 20 ML VIAL ONE (09:59)
[2023-07-04] MEDS ORDERED: CEFAZOLIN SODIUM 1 GM VIAL ONE (09:59)
[2023-07-04] MEDS: 0.9%NACL 1000ML 1,000 ML IV ONE (10:09)
[2023-07-04] MEDS: METRONIDAZOLE 500MG/100ML BAG 100 ML ONE (10:09)
[2023-07-04] MEDS ORDERED: LIDOCAINE PF 100MG/5ML (2%) SYRINGE 5ML ONE (10:57)
[2023-07-04] MEDS ORDERED: SUCCINYLCHOLINE CHLORIDE 20 MG/ML 10 ML VIAL ONE (10:58)
[2023-07-04] MEDS ORDERED: ROCURONIUM BROMIDE 10MG/1ML 5ML VL ONE (10:58)
[2023-07-04] MEDS ORDERED: PROPOFOL 10 MG/ML 20ML VIAL IV ONE (10:58)
[2023-07-04] MEDS ORDERED: FENTANYL CITRATE PF 50 MCG/1 ML 2ML VIAL ONE (10:58)
[2023-07-04] MEDS: SUGAMMADEX SODIUM 200 MG/2 ML VIAL IV ONE (11:14)
[2023-07-04] MEDS: SODIUM CHLORIDE 3% FOR INHALATION 4 ML/AMP VIAL.NEB IH ONE (12:47)
[2023-07-04] MEDS: RACEPINEPHRINE HCL 2.25% 0.5 ML NEB SOLN NEB STA (12:47)
[2023-07-04] MEDS: RACEPINEPHRINE HCL 2.25% 0.5 ML NEB SOLN ONE (12:49)
[2023-07-04] MEDS: ONDANSETRON 4MG INJ ONE (12:52)
[2023-07-04] MEDS: MEPERIDINE-PF 25 MG/ML SYG ONE (13:02)
[2023-07-04] MEDS: ONDANSETRON 4MG INJ IV PRN (14:44)
[2023-07-04] MEDS: LORAZEPAM 2 MG/ML 1 ML VIAL IM STA (15:55)
[2023-07-04] MEDS: HYDROMORPHONE 1 MG INJ IVP PRN (15:56)
[2023-07-04] MEDS: POTASSIUM CHLORIDE 20MEQ/100ML 100 ML IV ONE (18:41)
[2023-07-05] VITALS (8 sets, daily range): BP systolic 106–134; BP diastolic 68–86; PULSE 67–81; RESP 16–18; O2SAT 96–97
[2023-07-05 05:13] LABS: HEMATOCRIT 32.6 % (36-48); MEAN CORPUSCULAR HEMOGLOBIN 30.8 pg (27.0-33.0); MEAN CORPUSCULAR VOLUME 90.6 fL (79-99); RED BLOOD CELL COUNT(AUTO) 3.6 MIL/uL (4.00-5.50); RED CELL DISTRIBUTION WIDTH 12.6 % (11.0-15.5); WHITE BLOOD COUNT (AUTO) 6.8 K/uL (4.8-10.8)
[2023-07-05 05:41] LABS: ALBUMIN 2.2 g/dL (3.5-5.0); BILIRUBIN,TOTAL 0.3 mg/dL (0.2-1.0); CREATININE 0.6 mg/dL (0.5-1.0); MAGNESIUM 1.5 mg/dL (1.80-2.40); POTASSIUM 3.1 mmol/L (3.5-5.1); TOTAL PROTEIN, SERUM 5.2 g/dL (6.0-8.3)
[2023-07-05] MEDS: MAGNESIUM 2GM PREMIX 50ML 50 ML IV PRN (06:39)
[2023-07-05] MEDS ORDERED: MAGNESIUM 2GM PREMIX 50ML 50 ML IV SCH (14:30)
[2023-07-05] MEDS: KCL 20 MEQ ERTAB PO ONE (15:15)
[2023-07-06] VITALS: BP 125/76; PULSE 64; RESP 18
[2023-07-06 04:00] VITALS: BP 125/73; PULSE 64; RESP 18
[2023-07-06 06:13] LABS: HEMATOCRIT 32.1 % (36-48); MEAN CORPUSCULAR HEMOGLOBIN 31.2 pg (27.0-33.0); MEAN CORPUSCULAR HGB CONC 34.3 g/dL (32.0-36.0); MEAN CORPUSCULAR VOLUME 90.9 fL (79-99); RED BLOOD CELL COUNT(AUTO) 3.53 MIL/uL (4.00-5.50); RED CELL DISTRIBUTION WIDTH 12.8 % (11.0-15.5); WHITE BLOOD COUNT (AUTO) 5.4 K/uL (4.8-10.8)
[2023-07-06 06:35] LABS: ALBUMIN 2.3 g/dL (3.5-5.0); BILIRUBIN,TOTAL 0.3 mg/dL (0.2-1.0); CREATININE 0.6 mg/dL (0.5-1.0); MAGNESIUM 1.7 mg/dL (1.80-2.40); TOTAL PROTEIN, SERUM 5.3 g/dL (6.0-8.3)
[2023-07-06 08:19] VITALS: O2SAT 98
[2023-07-06] MEDS: OXYCODONE/ACETAMIN 5/325MG TAB PO PRN (08:19)
[2023-07-06 08:32] VITALS: BP 141/76; PULSE 65; RESP 16
[2023-07-06 12:11] VITALS: BP 121/73; PULSE 77; RESP 18
[2023-07-06] MEDS ORDERED: MAGNESIUM 2GM PREMIX 50ML 50 ML IV SCH (12:30)
[2023-07-06] MEDS ORDERED: LEVO-70 PO (13:05)
[2023-07-06] MEDS ORDERED: METR-172 PO (13:06)
== END 2023-07-06 14:40 | disposition home or self-care (01) | DRG 418 ==
LOC: EDH 15:47 → EDHIP 15:48 → 3AH 23:56
PROVIDERS: ADMIT Hospitalist; ATTEND Hospitalist
PROC: 0FT44ZZ Resection of Gallbladder, Percutaneous Endoscopic Approach (ICD-10-PCS; principal; 2023-07-04 10:57)
DX: K80.00 Calculus of gallbladder with acute cholecystitis without obstruction (principal); E87.1 Hypo-osmolality and hyponatremia; K75.9 Inflammatory liver disease, unspecified; E11.65 Type 2 diabetes mellitus with hyperglycemia; E86.0 Dehydration; K82.8 Other specified diseases of gallbladder; Z88.0 Allergy status to penicillin; Z88.1 Allergy status to other antibiotic agents; Z88.8 Allergy status to other drugs, medicaments and biological substances; Z79.4 Long term (current) use of insulin; Z79.84 Long term (current) use of oral hypoglycemic drugs; Z82.49 Family history of ischemic heart disease and other diseases of the circulatory system; Z87.442 Personal history of urinary calculi
CPT/HCPCS: 36415; 74178; 76705; 80048; 80053; 80061; 80074; 81001; 81025; 82948; 82977; 83036; 83690; 83735; 85025; 85027; 87040; 88304; 94640; 96374; 96375; G0378; J0330; J0690; J1170; J1630; J1815; J1956; J2001; J2060; J2175; J2270; J2405; J2704; J3010; J3475; J3480; J3490; J7030; J7120; Q9967; A4216; A4222; A4223; A4600; A4649; A4930; A6206; C1769; J0665

== ENCOUNTER 2024-03-12 15:37 | Inpatient (IN) | payer SELFPAY ==
[~2024-03-12] VITALS: Ht 162.6 cm; Wt 83.9 kg
[~2024-03-12 15:37] MED LIST changes: -CEPH500B PO; +LEVO-70 PO; +METF-1150 PO; -METF-890 PO; +METR-172 PO; +ONDA-243 PO; -ONDA4TAB10 PO
[2024-03-12] MEDS: 0.9%NACL 1000ML 1,000 ML IV ONE (16:02)
[2024-03-12 16:07] LABS: ADD UA MICROSCOPIC YES; APPEARANCE,URINE CLEAR (CLEAR); BILIRUBIN,URINE NEGATIVE (NEGATIVE); COLOR,URINE LIGHT-YELLOW (YELLOW); GLUCOSE, URINE (UA) >=1000 mg/dL (NEGATIVE); KETONES,URINE 60 mg/dL (NEGATIVE); LEUKOCYTE ESTERASE ,URINE NEGATIVE Leu/uL (NEGATIVE); NITRATE,URINE NEGATIVE (NEGATIVE); OCCULT BLOOD,URINE NEGATIVE (NEGATIVE); PH,URINE 6.5 (5.0-8.0); PROTEIN,URINE 20 mg/dL (NEGATIVE); UROBILINOGEN,URINE 0.2 mg/dL (0.2-1.0)
[2024-03-12 16:09] LABS: BACTERIA,URINE RARE /HPF (None Seen); MUCUS,URINE RARE LPF (None Seen); SQUAMOUS EPITHELIAL CELL,UR RARE /HPF (0-2); WBC,URINE 0-1 /HPF (0-1)
[2024-03-12] MEDS: CEFTRIAXONE 2GM VIAL IVPB ONE (16:09)
[2024-03-12] MEDS: acetaMINOPHEN 500 MG TABLET PO ONE (16:09)
[2024-03-12] MEDS: acetaMINOPHEN 500 MG TABLET ONE (16:10)
[2024-03-12] MEDS: ondanSETRON 4MG INJ ONE (16:28)
[2024-03-12] MEDS: ondanSETRON 4MG INJ IVP ONE ×2 (16:28)
[2024-03-12] MEDS: morPHINE 4 MG SYG IVP ONE (16:29)
--- NOTE | 2024-03-12 16:33 | HMCIMG ---
CHEST 1VW REASON: fever COMPARISON: 12/23/2021 FINDINGS: Single view of the chest was obtained. Lungs are clear. Heart size is normal. There is no pulmonary vascular congestion. Mediastinum and bony thorax appear unremarkable. IMPRESSION: 1. Normal single view chest x-ray.
[2024-03-12 16:45] LABS: BASOPHILS # (AUTO) 0.02 K/uL (0.00-0.20); BASOPHILS % (AUTO) 0.3 % (0.0-5.0); EOSINOPHILS # (AUTO) 0.05 K/uL (0.00-0.70); EOSINOPHILS % (AUTO) 0.7 % (0.0-8.0); HEMATOCRIT 40.2 % (36-48); IMMATURE GRANULOCYTE ABSOLUTE 0.05 K/uL (0-1); LYMPHOCYTES # (AUTO) 0.8 K/uL (1.0-4.8); MEAN CORPUSCULAR HEMOGLOBIN 31.9 pg (27.0-33.0); MEAN CORPUSCULAR HGB CONC 36.3 g/dL (32.0-36.0); MONOCYTES # (AUTO) 0.6 K/uL (0.1-1.0); MONOCYTES % (AUTO) 7.7 % (3.0-13.0); NEUTROPHILS # (AUTO) 5.7 K/uL (1.8-7.7); NEUTROPHILS % (AUTO) 79.6 % (40.0-77.0); PLATELET COUNT (AUTO) 187 K/uL (130-400); RED BLOOD CELL COUNT(AUTO) 4.57 MIL/uL (4.00-5.50); RED CELL DISTRIBUTION WIDTH 12.1 % (11.0-15.5); WHITE BLOOD COUNT (AUTO) 7.1 K/uL (4.8-10.8)
[2024-03-12 16:59] LABS: CARBON DIOXIDE 25 mmol/L (21-32); CHLORIDE 100 mmol/L (101-111); CREATININE 0.9 mg/dL (0.5-1.0); GLOMERULAR FILTR. RATE CALC 82 mL/min (>90); GLUCOSE,RANDOM 316 mg/dL (70-105); POTASSIUM 3.4 mmol/L (3.5-5.1); SODIUM SERUM 138 mmol/L (136-145); UREA NITROGEN, BLOOD 9 mg/dL (7-18)
--- NOTE | 2024-03-12 17:03 | ERN ---
ED Note History of Present Illness Stated Complaint: L POSTERIOR BACK PAIN Chief Complaint: Flank Pain Time Seen by MD: 15:52 Dictation: 43-year-old female presents to the ED for evaluation of right flank pain onset this morning. Patient reports fever, vomiting, back pain, but denies any diarrhea, hematuria or any other associated symptoms at this time. Patient states she took Tylenol cold medicine prior to arrival. Medical history of renal stones. Allergies: Coded Allergies: Penicillins (Verified Allergy, Unknown, 12/18/17) amoxicillin (Unverified Allergy, Unknown, 04/17/19) ibuprofen (Unverified Allergy, Unknown, 03/12/24) CAUSES NAUSEA/VOMITING Home Meds Active Scripts Metronidazole (Metronidazole) 500 Mg Tablet, 500 MG PO BID for 5 Days, #10 TAB 0 Refills Prov:YADY ADDISON MD 07/06/23 Levofloxacin (Levofloxacin) 500 Mg Tablet, 500 MG PO DAILY for 5 Days, #5 TAB 0 Refills Prov:YADY ADDISON MD 07/06/23 Ondansetron (Ondansetron Odt) 4 Mg Tab.rapdis, 8 MG PO Q8H PRN for NAUSEA/VOMITING, #15 TAB.SL Prov:PARUL DOMINGUEZ MD 05/18/23 Famotidine (Famotidine) 20 Mg Tablet, 20 MG PO DAILY, #30 TAB Prov:PARUL DOMINGUEZ MD 05/18/23 Metformin HCl (Metformin HCl ER) 500 Mg [id number], 500 MG PO DAILY, #30 MG 0 Refills Prov:ALEISHA RAY MD 07/08/22 Insulin Glargine,Hum.rec.anlog (Lantus) 100 Units/Ml Inj, 10 UNITS SQ HS, #1 ML 0 Refills Prov:SUSANNA GANDHI AGPCYOU 06/19/21 Past Medical History Past Medical History: Diabetes-Type II, Other Additional Past Medical Hx: GALLSTONES AND RENAL STONES Surgical History: Cholecystectomy Surgical History Other: TUBAL LIGATION Family History: Negative Social History: Smokers, Lives with family, Other Review of System Dictation Constitutional: Positive for fever negative for chills, and weight loss Eyes: Negative for injury, pain,redness, and discharge ENT: Negative for injury,pain or swelling Cardiovascular: Negative for chest pain, palpitations, and edema Respiratory: Negative for shortness of breath, cough, and wheezing, Abdomen/GI: Positive for flank pain Negative for abdominal pain, nausea, vomiting, diarrhea, and constipation Back: Negative for injury and pain : Negative for injury, bleeding and discharge MS/Extremity: Negative for injury and deformity Skin: Negative for rash, and discoloration Neuro: Negative for headache, weakness, numbness, tingling, and seizure Psych: Negative for suicide ideation, homicidal ideation, and hallucinations Initial Vital Sign VS Vital Signs Date Time Temp Pulse Resp B/P (MAP) Pulse Ox O2 Delivery O2 Flow Rate FiO2 03/12/24 15:39 102.6 130 22 147/67 97 Room Air 0 03/12/24 15:58 21 Physical Exam Dictation General: awake, alert, NAD Head/Face: Normocephalic, atraumatic Eyes: PERRL, EOMI, vision at baseline ENT: oral cavity clear, TMs clear, no signs of infection Neck: Trachea midline, supple, no nuchal rigidity Cardiovascular: RRR, normal S1/S2, No MRGs, no JVD Respiratory: CTAB, no respiratory distress, No rales or wheezes Abdomen: Soft, non-tender, positive for right flank tenderness, normal bowel nahomy nds, no guarding or rebound. Skin: Warm, dry, normal turgor, no rash MS/Extremity: Pulses equal, no cyanosis, neurovascular intact, FROM Neuro: COAx4, GCS 15, strength 5/5, CN 2-12 intact, normal cerebellar exam, normal gait, Psych: Normal behavior, mood, and affect normal Results (Laboratory/Radiology) Laboratory/Radiology Laboratory Tests Test 03/12/24 15:51 03/12/24 16:00 Urine Color LIGHT-YELLOW (YELLOW) Urine Appearance CLEAR (CLEAR) Urine pH 6.5 (5.0-8.0) Urine Specific [place] 1.030 (1.001-1.031) Urine Protein 20 mg/dL (NEGATIVE) H Urine Glucose (UA) >=1000 mg/dL (NEGATIVE) H Urine Ketones 60 mg/dL (NEGATIVE) H Urine Occult Blood NEGATIVE (NEGATIVE) Urine Nitrate NEGATIVE (NEGATIVE) Urine Bilirubin NEGATIVE mg/dL (NEGATIVE) Urine Urobilinogen 0.2 mg/dL (0.2-1.0) Urine Leukocyte Esterase NEGATIVE Delgado/uL Urine RBC None /HPF (0-1) Urine WBC 0-1 /HPF (0-1) Urine Squamous Epithelial Cells RARE /HPF (0-2) Urine Bacteria RARE /HPF (None Seen) White Blood Count 7.1 K/uL (4.8-10.8) Red Blood Count 4.57 MIL/uL (4.00-5.50) Hemoglobin 14.6 g/dL (12.0-16.0) Hematocrit 40.2 % (36-48) Mean Corpuscular Volume 88.0 fL (79-99) Mean Corpuscular Hemoglobin 31.9 pg (27.0-33.0) Mean Corpuscular Hemoglobin Concent 36.3 g/dL (32.0-36.0) H Red Cell Distribution Width 12.1 % (11.0-15.5) Platelet Count 187 K/uL (130-400) Mean Platelet Volume 11.3 fL (7.5-10.5) H Immature Granulocyte % (Auto) 0.7 % (0-1) Neutrophils (%) (Auto) 79.6 % (40.0-77.0) H Lymphocytes (%) (Auto) 11.0 % (21.0-51.0) L Monocytes (%) (Auto) 7.7 % (3.0-13.0) Eosinophils (%) (Auto) 0.7 % (0.0-8.0) Basophils (%) (Auto) 0.3 % (0.0-5.0) Neutrophils # (Auto) 5.7 K/uL (1.8-7.7) Lymphocytes # (Auto) 0.8 K/uL (1.0-4.8) L Monocytes # (Auto) 0.6 K/uL (0.1-1.0) Eosinophils # (Auto) 0.05 K/uL (0.00-0.70) Basophils # (Auto) 0.02 K/uL (0.00-0.20) Absolute Immature Granulocyte (auto 0.05 K/uL (0-1) Nucleated Red Blood Cells 0.0 % (0.0-0.19) Red Blood Cell Morphology See comments Sodium Level 138 mmol/L (136-145) Potassium Level 3.4 mmol/L (3.5-5.1) L Chloride Level 100 mmol/L (101-111) L Carbon Dioxide Level 25 mmol/L (21-32) Blood Urea Nitrogen 9 mg/dL (7-18) Creatinine 0.9 mg/dL (0.5-1.0) Glomerular Filtration Rate Calc 82 mL/min (>90) Random Glucose 316 mg/dL (70-105) H Lactic Acid Level 3.4 mmol/L (0.8-2.5) H Total Calcium 9.0 mg/dL (8.5-10.1) Total Bilirubin 0.3 mg/dL (0.2-1.0) Direct Bilirubin < 0.1 mg/dL (0.0-0.3) Aspartate Amino Transf (AST/SGOT) 43 U/L (10-37) H Alanine Aminotransferase (ALT/SGPT) 36 U/L (12-78) Alkaline Phosphatase 83 U/L (50-136) Total Creatine Kinase 92 U/L (21-232) # Troponin I High Sensitivity 7 ng/L (4-50) Total Protein 7.1 g/dL (6.0-8.3) Albumin 3.4 g/dL (3.5-5.0) L Labs Reviewed?: Yes X-RAY Comment: REASON: fever ORDERING PHYSICIAN: EFARÍN GRAFF MD PROCEDURE: CXR1VW - CHEST 1VW CHEST 1VW REASON: fever COMPARISON: 12/23/2021 FINDINGS: Single view of the chest was obtained. Lungs are clear. Heart size is normal. There is no pulmonary vascular congestion. Mediastinum and bony thorax appear unremarkable. IMPRESSION: 1. Normal single view chest x-ray. DICTATED BY: MARILIA TOMPKINS MD DATE: 03/12/[address] Scan Comment: REASON: fever ORDERING PHYSICIAN: EFRAÍN GRAFF MD PROCEDURE: ABD PELVWO - CT ABD/PEL WO CON RENAL/APPY CT ABD/PEL WO CON RENAL/APPY REASON: fever COMPARISON: 07/02/2023 FINDINGS: Lung bases are clear. There are no focal liver lesions. There are normal-appearing kidneys.. Spleen and pancreas appear unremarkable. There has been a previous cholecystectomy. Bowel loops appear unremarkable. There is no CT evidence of acute appendicitis. There is no evidence of free fluid or intraperitoneal air. There are no focal fluid collections. Aorta and retroperitoneum appear normal as do pelvic soft tissue structures. The anterior abdominal wall is intact. Osseous structures appear unremarkable. IMPRESSION: 1. Negative noncontrast CT abdomen and pelvis. CT was performed with one or more following dose reduction techniques: automated exposure control, adjustment of the mA and kv according to patient's size, or use of a iterative reconstruction technique. DICTATED BY: MARILIA TOMPKINS MD DATE: 03/12/24 170 ED Course ED Course Orders Procedure Category Date Status Time Iv Insertion CPOE 03/12/24 Transmitted 15:46 Pulse Ox(Continuous) RT 03/12/24 Transmitted 15:46 Vital Signs Per CPOE 03/12/24 Transmitted Routine 15:46 12 Lead Ekg Tracing- EKG 03/12/24 Logged Technical 15:46 Cbc With Differential LAB 03/12/24 Complete 15:46 Blood Cult TAMARA 03/12/24 In Process 15:46 Urinalysis Profile LAB 03/12/24 Complete 15:46 Culture Urine TAMARA 03/12/24 In Process 15:46 Creatine Kinase, Total LAB 03/12/24 Complete 15:46 Troponin I High LAB 03/12/24 Complete Sensitivity 15:46 Lactic Acid LAB 03/12/24 Complete 15:46 Basic Metabolic Panel LAB 03/12/24 Complete 15:46 Chest 1vw RAD 03/12/24 Resulted 15:57 Ct Abd/Pel Wo Con CT 03/12/24 Resulted Renal/Appy 15:57 Ceftriaxone 2gm Vial PHA 03/12/24 Complete (Rocephin 2gm Inj) 16:00 0.9%Nacl 1000ml (Ns PHA 03/12/24 Complete 1000ml) 16:00 Acetaminophen 500mg PHA 03/12/24 Complete Tab (Tylenol 500mg T 16:00 Acetaminophen 500mg PHA 03/12/24 Complete Tab (Tylenol 500mg T 15:57 Ondansetron 4mg Inj PHA 03/12/24 Complete (Zofran 4mg Inj) 16:30 Ondansetron 4mg Inj PHA 03/12/24 Complete (Zofran 4mg Inj) 16:24 Ondansetron 4mg Inj PHA 03/12/24 Complete (Zofran 4mg Inj) 16:30 Morphine 4mg Syg PHA 03/12/24 Complete (Morphine 4mg Syg) 16:30 Hepatic Function Panel LAB 03/12/24 Complete 16:00 Current Medications Medications (Trade) Dose Ordered Sig/Berenice Route PRN Reason Start Time Stop Time Status Last Admin Dose Admin Acetaminophen (TYLenol 500MG TAB) 500 mg STK-MED ONCE .ROUTE 03/12/24 15:57 03/12/24 16:02 DC Acetaminophen (TYLenol 500MG TAB) 1,000 mg ONCE ONCE PO 03/12/24 16:00 03/12/24 16:01 DC 03/12/24 16:09 Ceftriaxone Sodium (Rocephin 2gm Inj) 2 gm ONCE ONCE IVPB 03/12/24 16:00 03/12/24 16:01 DC 03/12/24 16:09 Morphine Sulfate (morPHINE 4MG SYG) 4 mg ONCE ONCE IVP 03/12/24 16:30 03/12/24 16:38 DC 03/12/24 16:29 Ondansetron HCl (zoFRAN 4MG INJ) 4 mg ONCE ONCE IVP 03/12/24 16:30 03/12/24 16:38 DC 03/12/24 16:28 Ondansetron HCl (zoFRAN 4MG INJ) 4 mg ONCE ONCE IVP 03/12/24 16:30 03/12/24 16:38 DC Ondansetron HCl (zoFRAN 4MG INJ) 4 mg STK-MED ONCE .ROUTE 03/12/24 16:24 03/12/24 16:25 DC Sodium Chloride 1,000 ml @ 0 mls/hr ONCE ONCE IV 03/12/24 16:00 03/12/24 16:01 DC 03/12/24 16:02 Vital Signs Date Time Temp Pulse Resp B/P (MAP) Pulse Ox O2 Delivery O2 Flow Rate FiO2 03/12/24 17:27 99.3 108 18 124/66 95 Room Air* 0 21 03/12/24 16:09 100.9 03/12/24 15:58 101.8 124 20 159/78 95 Room Air* 0 21 03/12/24 15:39 102.6 130 22 147/67 97 Room Air 0 Medical Decision Making MDM MDM: Differential diagnosis: Flank pain, renal stone, sepsis 1831- Hospitalist consult accepts patient for admission Previous outside records reviewed: Old ER visits. Need for hospitalization: Patient does not meet criteria for hospitalization. Need for emergency major/minor surgery: No Patient's prior external medical records from other ER visits were reviewed by me as indicated. Prior testing and results from previous visits were reviewed. Prior tests were taken into account with medical decision making and resource utilization, independent historian/historians were used to obtain complete medical history. I independently interpreted the test that were performed, results were reviewed by me and considered findings on radiology if ordered. Medical management and examination interpretation discussions were had by me with other qualified healthcare professionals as indicated for the patient's care. I attest that I performed a sepsis focused exam including review of vitals, cardiopulmonary exam, capillary refill evaluation, peripheral pulse evaluation and Skin exam. Critical Care Note Critical Time: other (Total critical care time was 33 minutes. Excluding time for procedures. Management of critically ill patient with concern for acute decompensation. Management included interpretation of laboratory values and imaging, hemodynamics, time for consultation with consultants and admitting physician.) DX & DISP Disposition: Inpatient Decision to Admit Date: Mar 12, 2024 Decision to Admit Time: 18:33 Departure Impression: Primary Impression: Sepsis Condition: Stable Referrals: SELF,REFERRAL (PCP) I have reviewed, & agreed with my scribe's, documentation. (Entered by Pita Lorenzo, acting as a scribe for Dr. Graff) I personally scribed for EFRAÍN GRAFF MD ([email or web address]) on 03/12/24 at 18:38. Electronically submitted by Pita Lorenzo ([email or web address]). EFRAÍN GRAFF MD Mar 12, 2024 17:03
[2024-03-12 17:08] LABS: ALANINE AMINOTRANSFERASE 36 U/L (12-78); ALBUMIN 3.4 g/dL (3.5-5.0); ASPARTATE AMINOTRANSFERASE 43 U/L (10-37); BILIRUBIN,DIRECT < 0.1 mg/dL (0.0-0.3); BILIRUBIN,TOTAL 0.3 mg/dL (0.2-1.0); CREATINE KINASE, TOTAL 92 U/L (21-232); TOTAL PROTEIN, SERUM 7.1 g/dL (6.0-8.3)
[2024-03-12 17:09] VITALS: TEMP 99.4
--- NOTE | 2024-03-12 17:10 | HMCIMG ---
CT ABD/PEL WO CON RENAL/APPY REASON: fever COMPARISON: 07/02/2023 FINDINGS: Lung bases are clear. There are no focal liver lesions. There are normal-appearing kidneys.. Spleen and pancreas appear unremarkable. There has been a previous cholecystectomy. Bowel loops appear unremarkable. There is no CT evidence of acute appendicitis. There is no evidence of free fluid or intraperitoneal air. There are no focal fluid collections. Aorta and retroperitoneum appear normal as do pelvic soft tissue structures. The anterior abdominal wall is intact. Osseous structures appear unremarkable. IMPRESSION: 1. Negative noncontrast CT abdomen and pelvis. CT was performed with one or more following dose reduction techniques: automated exposure control, adjustment of the mA and kv according to patient's size, or use of a iterative reconstruction technique.
[2024-03-12] MEDS: LACTATED RINGERS 1000ML 1,000 ML IV SCH (19:49)
--- NOTE | 2024-03-12 20:09 | HP ---
[facility] Date of Service: Mar 12, 2024 Time of Service: 19:50 Attending physician: Dr Webber HISTORY OF PRESENT ILLNESS: 43-year-old female with medical history of diabetes, obesity class 1who presented to the emergency department with chief complaints of flank pain, fever, chills, nausea, vomiting, body aches generalized body weakness and fatigue. Onset this morning. She also complains of sinus congestion, occasional cough but denies any shortness of breaths, chest pain or palpitation s. She has the same symptoms a week ago got better. ED presentation: Initial vital signs upon arrival oral to monitor 0.6, heart rate 130, respiration 22, blood pressure 147/67, saturating 97% on room air. Chest x-ray unremarkable. CT of the abdomen pelvis without contrast unremarkable. Lab work analysis shows potassium 3.4, glucose 316, lactic acid 3.4, WBCs 7.1, hemoglobin 14.6, hematocrit 40.2. ED interventions: She received1 L normal saline bolus, Tylenol for fever, morphine for pain, Zofran antibiotic therapy Rocephin. Upon evaluation of the patient is awake, alert and oriented. Bilateral breath sounds clear. Abdomen is soft nontender nondistended with positive bowel sounds. Still complains of bilateral flank pain, tender to palpation. Denies any constipation, diarrhea, dysuria, hematuria more lowell bloody stools. REVIEW OF SYSTEMS CONSTITUTIONAL: Denies night sweats. No unintentional weight loss reported. Complaints of fever and chills, bilateral flank pain, nausea we will vomiting we will body aches, generalized body weakness and fatigue NEUROLOGICAL: Denies headache, amaurosis fugax, motor weakness, sensory deficit, vertigo/spinning sensation, gait abnormalities, or tremors. ENT: No hearing loss, otalgia, otorrhea, rhinitis, rhinorrhea, hoarseness, or sore throat. CARDIOVASCULAR: Denies any exertional angina, dyspnea on exertion, orthopnea, paroxysmal nocturnal dyspnea, palpitations, life-threatening arrhythmias, claudication. PULMONARY: Denies any shortness of breath, cough, phlegm/sputum, hemoptysis, pleuritic chest pain. SLEEP: Denies morning headaches, daytime somnolence or napping. Denies difficulty falling asleep, staying asleep, waking from sleep. Denies knowledge of snoring. GASTROINTESTINAL: Denies any type of dysphagia to either liquids or solids. Denies pyrosis, early satiety, abdominal pain, diarrhea, constipation, or changes in stool consistency or caliber. Denies coffee-ground emesis, hematemesis, hematochezia, or melanotic stools. Complaints of nausea and vomiting GENITOURINARY: Denies frequency, urgency, nocturia, hematuria or incontinence (Storage/Irritative symptoms.) Low urinary stream, straining to void, urinary intermittency or hesitancy, splitting of the voiding stream, terminal dribbling. ENDOCRINOLOGIC: Denies polyuria, polydipsia, polyphagia or heat/cold intolerances. HEMATOLOGIC: Denies thrombophilia/previous clots, or coagulopathy/bleeding disorders. ONCOLOGIC: Denies personal history of malignancy. DERMATOLOGIC: Denies rashes or pruritus. PSYCHIATRIC: Denies any suicidal or homicidal ideation. Denies hallucinations. PAST MEDICAL HISTORY: Diabetes PAST SURGICAL HISTORY: Cholecystectomy PAST SOCIAL HISTORY: Denies any use of alcohol, tobacco or illicit drugs FAMILY HISTORY: Coded Allergies: Penicillins (Verified Allergy, Unknown, 12/18/17) amoxicillin (Unverified Allergy, Unknown, 04/17/19) ibuprofen (Unverified Allergy, Unknown, 03/12/24) CAUSES NAUSEA/VOMITING PHYSICAL EXAM GENERAL APPEARANCE: The patient is awake, alert, and oriented, in no acute cardiopulmonary distress. NEUROLOGICAL: Cranial nerves II-XII grossly intact. Motor is 5/5 in bilateral upper and lower extremities proximal to distal. No sensory deficits. HEENT: Face is symmetric. Pupils are equal and reactive. Extraocular movements are intact. NECK: Supple. No JVD. No thyromegaly. No submental, submandibular, pre- /postauricular, occipital or supraclavicular lymphadenopathy. CHEST: Normal chest expansion. No Telemetry. LUNGS: Absence of any rales, rhonchi or any wheezing. CARDIOVASCULAR: Regular. S1 and S2 normal. No appreciable rubs, murmurs or gallops. ABDOMEN: Soft, nontender, and nondistended. There is no rebound, voluntary guarding, or rigidity. : Deferred. No [place]. EXTREMITIES: Non-edematous and not cyanotic. No clubbing. Good capillary refill. SKIN: No skin breakdown. Vital Sign (Last 24 Hours) 03/12/24 03/12/24 17:27 18:58 Temp 99.1 Pulse 108 Resp 18 B/P (MAP) 124/66 Pulse Ox 95 O2 Delivery Room Air* O2 Flow Rate 0 FiO2 21 LABS: Laboratory: Test 03/12/24 16:00 03/12/24 15:51 Range/Units White Blood Count 7.1 4.8-10.8 K/uL Red Blood Count 4.57 4.00-5.50 MIL/uL Hemoglobin 14.6 12.0-16.0 g/dL Hematocrit 40.2 36-48 % Mean Corpuscular Volume 88.0 79-99 fL Mean Corpuscular Hemoglobin 31.9 27.0-33.0 pg Mean Corpuscular Hemoglobin Concent 36.3 H 32.0-36.0 g/dL Red Cell Distribution Width 12.1 11.0-15.5 % Platelet Count 187 130-400 K/uL Mean Platelet Volume 11.3 H 7.5-10.5 fL Immature Granulocyte % (Auto) 0.7 0-1 % Neutrophils (%) (Auto) 79.6 H 40.0-77.0 % Lymphocytes (%) (Auto) 11.0 L 21.0-51.0 % Monocytes (%) (Auto) 7.7 3.0-13.0 % Eosinophils (%) (Auto) 0.7 0.0-8.0 % Basophils (%) (Auto) 0.3 0.0-5.0 % Neutrophils # (Auto) 5.7 1.8-7.7 K/uL Lymphocytes # (Auto) 0.8 L 1.0-4.8 K/uL Monocytes # (Auto) 0.6 0.1-1.0 K/uL Eosinophils # (Auto) 0.05 0.00-0.70 K/uL Basophils # (Auto) 0.02 0.00-0.20 K/uL Absolute Immature Granulocyte (auto 0.05 0-1 K/uL Nucleated Red Blood Cells 0.0 0.0-0.19 % Red Blood Cell Morphology See comments Sodium Level 138 136-145 mmol/L Potassium Level 3.4 L 3.5-5.1 mmol/L Chloride Level 100 L 101-111 mmol/L Carbon Dioxide Level 25 21-32 mmol/L Blood Urea Nitrogen 9 7-18 mg/dL Creatinine 0.9 0.5-1.0 mg/dL Glomerular Filtration Rate Calc 82 >90 mL/min Random Glucose 316 H 70-105 mg/dL Lactic Acid Level 3.4 H 0.8-2.5 mmol/L Total Calcium 9.0 8.5-10.1 mg/dL Total Bilirubin 0.3 0.2-1.0 mg/dL Direct Bilirubin < 0.1 0.0-0.3 mg/dL Aspartate Amino Transf (AST/SGOT) 43 H 10-37 U/L Alanine Aminotransferase (ALT/SGPT) 36 12-78 U/L Alkaline Phosphatase 83 50-136 U/L Total Creatine Kinase 92 # 21-232 U/L Troponin I High Sensitivity 7 4-50 ng/L Total Protein 7.1 6.0-8.3 g/dL Albumin 3.4 L 3.5-5.0 g/dL Urine Color LIGHT-YELLOW YELLOW Urine Appearance CLEAR CLEAR Urine pH 6.5 5.0-8.0 Urine Specific [place] 1.030 1.001-1.031 Urine Protein 20 H NEGATIVE mg/dL Urine Glucose (UA) >=1000 H NEGATIVE mg/dL Urine Ketones 60 H NEGATIVE mg/dL Urine Occult Blood NEGATIVE NEGATIVE Urine Nitrate NEGATIVE NEGATIVE Urine Bilirubin NEGATIVE NEGATIVE mg/dL Urine Urobilinogen 0.2 0.2-1.0 mg/dL Urine Leukocyte Esterase NEGATIVE NEGATIVE Delgado/uL Urine RBC None 0-1 /HPF Urine WBC 0-1 0-1 /HPF Urine Squamous Epithelial Cells RARE 0-2 /HPF Urine Bacteria RARE None Seen /HPF Current Medications Medications (Trade) Dose Ordered Sig/Berenice Route PRN Reason Start Time Stop Time Status Last Admin Dose Admin Acetaminophen (TYLenol 325MG TAB) 650 mg Q6H PRN PO MILD PAIN (1-3) 03/12/24 19:30 04/11/24 19:29 Lactated Ringer's 1,000 ml @ 100 mls/hr Q10H IV 03/12/24 19:30 04/11/24 19:29 Morphine Sulfate (morPHINE 2MG SYG) 2 mg Q4H PRN IVP SEVERE PAIN (7-10) 03/12/24 19:30 03/19/24 19:29 Ondansetron HCl (zoFRAN 4MG INJ) 4 mg Q6H PRN IV NAUSEA/VOMITING 03/12/24 19:30 04/11/24 19:29 Tramadol HCl (UltRAM) 50 mg Q6H PRN PO MODERATE PAIN (4-6) 03/12/24 19:30 03/17/24 19:29 DIAGNOSTICS / RADIOLOGY: PATIENT: TATYANA NELSON MR#: [id number] : 1980 SEX: F AGE: 43 LOCATION: [facility] ORDER 58 STATUS: [facility] REPORT#: [id number] SERVICE 56 REASON: fever ORDERING PHYSICIAN: EFRAÍN GRAFF MD PROCEDURE: CXR1VW - CHEST 1VW CHEST 1VW REASON: fever COMPARISON: 12/23/2021 FINDINGS: Single view of the chest was obtained. Lungs are clear. Heart size is normal. There is no pulmonary vascular congestion. Mediastinum and bony thorax appear unremarkable. IMPRESSION: 1. Normal single view chest x-ray. PATIENT: TATYANA NELSON MR#: [id number] : 1980 SEX: F AGE: 43 LOCATION: [facility] ORDER 58 STATUS: REG ER REPORT#: [id number] SERVICE 56 REASON: fever ORDERING PHYSICIAN: EFRAÍN GRAFF MD PROCEDURE: ABD PELVWO - CT ABD/PEL WO CON RENAL/APPY CT ABD/PEL WO CON RENAL/APPY REASON: fever COMPARISON: 07/02/2023 FINDINGS: Lung bases are clear. There are no focal liver lesions. There are normal-appearing kidneys.. Spleen and pancreas appear unremarkable. There has been a previous cholecystectomy. Bowel loops appear unremarkable. There is no CT evidence of acute appendicitis. There is no evidence of free fluid or intraperitoneal air. There are no focal fluid collections. Aorta and retroperitoneum appear normal as do pelvic soft tissue structures. The anterior abdominal wall is intact. Osseous structures appear unremarkable. IMPRESSION: 1. Negative noncontrast CT abdomen and pelvis. CT was performed with one or more following dose reduction techniques: automated exposure control, adjustment of the mA and kv according to patient's size, or use of a iterative reconstruction technique. ASSESSMENT: Fever unknown origin, POA Vitals syndrome, POA Dehydration, POA Elevated lactic acid in the setting of dehydration, POA Type 2 diabetes with hyperglycemia PLAN: Admitting patient to medical-surgical floor Lactated Ringer's at 100 mL/hour Clears advance diet as tolerated consistent carbohydrate Insulin sliding scale per protocol Hypoglycemia protocol Zofran as needed for nausea and vomiting Continue antibiotic therapy Rocephin empirically Follow up culture results and adjust antibiotic accordingly Obtain rapid influenza, CRP Zofran as needed for nausea and vomiting Tylenol as needed for pain or fever CBC BMP in the morning Monitor patient's condition and progress closely Discussed patient's case and plan of care with the attending physician ALLI HANKS Mar 12, 2024 20:09
--- NOTE | 2024-03-12 20:21 | NUR ---
PT NOT ON ANY HOME MEDS
[2024-03-12 20:25] LABS: INFLUENZA TYPE B Negative For Type B (NEGATIVE)
[2024-03-12 20:31] LABS: INFLUENZA TYPE A Positive For Type A (NEGATIVE)
[2024-03-12] MEDS: morPHINE 2 MG SYG IVP PRN (21:48)
[2024-03-12] MEDS: ondanSETRON 4MG INJ IV PRN (21:48)
[2024-03-12 23:30] VITALS: BP 159/93; PULSE 93; RESP 20; TEMP 100.1
[2024-03-13] MEDS ORDERED: DEXTROSE 50%-WATER 50 ML DISP.SYRIN IV PRN (02:00)
[2024-03-13] MEDS ORDERED: GLUCAGON 1MG KIT 1 MG ML IM PRN (02:00)
[2024-03-13] MEDS: acetaMINOPHEN 325 MG TAB PO PRN (02:15)
[2024-03-13 04:00] VITALS: BP 123/71; PULSE 80; RESP 20; TEMP 98.8
[2024-03-13] MEDS: guaiFENesin-DM 200/20MG 10ML PO PRN (05:10)
[2024-03-13] MEDS: PoTASSium chloRIDE 20MEQ ER 20 MEQ ERTAB PO ONE (05:13)
[2024-03-13 05:55] LABS: BASOPHILS # (AUTO) 0.02 K/uL (0.00-0.20); BASOPHILS % (AUTO) 0.5 % (0.0-5.0); HEMATOCRIT 37.8 % (36-48); IMMATURE GRANULOCYTE ABSOLUTE 0.03 K/uL (0-1); LYMPHOCYTES # (AUTO) 1.1 K/uL (1.0-4.8); LYMPHOCYTES % (AUTO) 26.2 % (21.0-51.0); MEAN CORPUSCULAR HEMOGLOBIN 31.2 pg (27.0-33.0); MEAN CORPUSCULAR HGB CONC 33.9 g/dL (32.0-36.0); MEAN CORPUSCULAR VOLUME 92.2 fL (79-99); MONOCYTES # (AUTO) 0.5 K/uL (0.1-1.0); MONOCYTES % (AUTO) 12.1 % (3.0-13.0); NEUTROPHILS # (AUTO) 2.4 K/uL (1.8-7.7); NEUTROPHILS % (AUTO) 60.5 % (40.0-77.0); PLATELET COUNT (AUTO) 166 K/uL (130-400); RED CELL DISTRIBUTION WIDTH 12.3 % (11.0-15.5)
[2024-03-13 06:07] LABS: CREATININE 0.9 mg/dL (0.5-1.0); MAGNESIUM 1.5 mg/dL (1.80-2.40); POTASSIUM 4.1 mmol/L (3.5-5.1)
[2024-03-13] MEDS: MAGNESIUM 2GM PREMIX 50ML 50 ML IV PRN (06:15)
[2024-03-13] MEDS: INSULIN humuLIN R 100 UNIT/ML 3ML SQ SCH (06:18)
[2024-03-13] MEDS: OSELTAMIVIR PHOSPHATE 75 MG CAP PO SCH (07:50)
--- NOTE | 2024-03-13 07:50 | EKG ---
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
[2024-03-13 08:00] VITALS: O2SAT 98
[2024-03-13 08:07] VITALS: BP 144/72; PULSE 80; RESP 20; TEMP 97.9
--- NOTE | 2024-03-13 09:10 | PN ---
[facility] PROGRESS NOTE Date of Service: Mar 13, 2024 Time of Service: 09:00 SUBJECTIVE: [ ] This is a 43-year-old female that presents in ED with chief complaints fever chills flank pain. Urine was negative. Blood cultures in process. Patient is seen and examined with attending Dr. Addison reviewed chart patient has low-grade temperatures. Denied chest pain or shortness for breath REVIEW OF SYSTEMS CONSTITUTIONAL: Denies night sweats. No unintentional weight loss reported. Complaints of fever and chills, bilateral flank pain, nausea we will vomiting we will body aches, generalized body weakness and fatigue NEUROLOGICAL: Denies headache, amaurosis fugax, motor weakness, sensory deficit, vertigo/spinning sensation, gait abnormalities, or tremors. ENT: No hearing loss, otalgia, otorrhea, rhinitis, rhinorrhea, hoarseness, or sore throat. CARDIOVASCULAR: Denies any exertional angina, dyspnea on exertion, orthopnea, paroxysmal nocturnal dyspnea, palpitations, life-threatening arrhythmias, claudication. PULMONARY: Denies any shortness of breath, cough, phlegm/sputum, hemoptysis, pleuritic chest pain. SLEEP: Denies morning headaches, daytime somnolence or napping. Denies difficulty falling asleep, staying asleep, waking from sleep. Denies knowledge of snoring. GASTROINTESTINAL: Denies any type of dysphagia to either liquids or solids. Denies pyrosis, early satiety, abdominal pain, diarrhea, constipation, or changes in stool consistency or caliber. Denies coffee-ground emesis, hematemesis, hematochezia, or melanotic stools. Complaints of nausea and vomit ing GENITOURINARY: Denies frequency, urgency, nocturia, hematuria or incontinence (Storage/Irritative symptoms.) Low urinary stream, straining to void, urinary intermittency or hesitancy, splitting of the voiding stream, terminal dribbling. ENDOCRINOLOGIC: Denies polyuria, polydipsia, polyphagia or heat/cold intolerances. HEMATOLOGIC: Denies thrombophilia/previous clots, or coagulopathy/bleeding disorders. ONCOLOGIC: Denies personal history of malignancy. DERMATOLOGIC: Denies rashes or pruritus. PSYCHIATRIC: Denies any suicidal or homicidal ideation. Denies hallucinations. PHYSICAL EXAM GENERAL APPEARANCE: The patient is awake, alert, and oriented, in no acute card iopulmonary distress. NEUROLOGICAL: Cranial nerves II-XII grossly intact. Motor is 5/5 in bilateral upper and lower extremities proximal to distal. No sensory deficits. HEENT: Face is symmetric. Pupils are equal and reactive. Extraocular movements are intact. NECK: Supple. No JVD. No thyromegaly. No submental, submandibular, pre- /postauricular, occipital or supraclavicular lymphadenopathy. CHEST: Normal chest expansion. No Telemetry. LUNGS: Absence of any rales, rhonchi or any wheezing. CARDIOVASCULAR: Regular. S1 and S2 normal. No appreciable rubs, murmurs or gallops. ABDOMEN: Soft, nontender, and nondistended. There is no rebound, voluntary guarding, or rigidity. : Deferred. No Patterson. EXTREMITIES: Non-edematous and not cyanotic. No clubbing. Good capillary refill. SKIN: No skin breakdown. Vital Signs (last 8hr) Date Time Temp Pulse Resp B/P (MAP) Pulse Ox O2 Delivery O2 Flow Rate FiO2 03/13/24 08:07 97.9 80 20 144/72 98 Room Air 21 03/13/24 04:00 98.8 80 20 123/71 98 Room Air LABS: Laboratory: Test 03/13/24 05:35 03/13/24 05:21 03/12/24 20:28 03/12/24 19:54 Range/Units Whole Blood Glucose 274 H 70-110 MG/DL White Blood Count 4.0 #L 4.8-10.8 K/uL Red Blood Count 4.10 4.00-5.50 MIL/uL Hemoglobin 12.8 12.0-16.0 g/dL Hematocrit 37.8 36-48 % Mean Corpuscular Volume 92.2 79-99 fL Mean Corpuscular Hemoglobin 31.2 27.0-33.0 pg Mean Corpuscular Hemoglobin Concent 33.9 32.0-36.0 g/dL Red Cell Distribution Width 12.3 11.0-15.5 % Platelet Count 166 130-400 K/uL Mean Platelet Volume 10.9 H 7.5-10.5 fL Immature Granulocyte % (Auto) 0.7 0-1 % Neutrophils (%) (Auto) 60.5 40.0-77.0 % Lymphocytes (%) (Auto) 26.2 21.0-51.0 % Monocytes (%) (Auto) 12.1 3.0-13.0 % Eosinophils (%) (Auto) 0.0 0.0-8.0 % Basophils (%) (Auto) 0.5 0.0-5.0 % Neutrophils # (Auto) 2.4 1.8-7.7 K/uL Lymphocytes # (Auto) 1.1 1.0-4.8 K/uL Monocytes # (Auto) 0.5 0.1-1.0 K/uL Eosinophils # (Auto) 0.00 0.00-0.70 K/uL Basophils # (Auto) 0.02 0.00-0.20 K/uL Absolute Immature Granulocyte (auto 0.03 0-1 K/uL Nucleated Red Blood Cells 0.0 0.0-0.19 % Sodium Level 141 136-145 mmol/L Potassium Level 4.1 3.5-5.1 mmol/L Chloride Level 105 101-111 mmol/L Carbon Dioxide Level 28 21-32 mmol/L Blood Urea Nitrogen 6 L 7-18 mg/dL Creatinine 0.9 0.5-1.0 mg/dL Glomerular Filtration Rate Calc 82 >90 mL/min Random Glucose 259 H 70-105 mg/dL Total Calcium 8.3 L 8.5-10.1 mg/dL Magnesium Level 1.50 L 1.80-2.40 mg/dL Lactic Acid Level 2.6 H 0.8-2.5 mmol/L Influenza Type A Antigen Positive For Type A *A NEGATIVE Influenza Type B Antigen Negative For Type B NEGATIVE Test 03/12/24 16:00 03/12/24 15:51 Range/Units Red Blood Cell Morphology See comments Total Bilirubin 0.3 0.2-1.0 mg/dL Direct Bilirubin < 0.1 0.0-0.3 mg/dL Aspartate Amino Transf (AST/SGOT) 43 H 10-37 U/L Alanine Aminotransferase (ALT/SGPT) 36 12-78 U/L Alkaline Phosphatase 83 50-136 U/L Total Creatine Kinase 92 # 21-232 U/L Troponin I High Sensitivity 7 4-50 ng/L C-Reactive Protein, Quantitative 19.70 H 0.5-3.0 mg/L Total Protein 7.1 6.0-8.3 g/dL Albumin 3.4 L 3.5-5.0 g/dL Urine Color LIGHT-YELLOW YELLOW Urine Appearance CLEAR CLEAR Urine pH 6.5 5.0-8.0 Urine Specific [place] 1.030 1.001-1.031 Urine Protein 20 H NEGATIVE mg/dL Urine Glucose (UA) >=1000 H NEGATIVE mg/dL Urine Ketones 60 H NEGATIVE mg/dL Urine Occult Blood NEGATIVE NEGATIVE Urine Nitrate NEGATIVE NEGATIVE Urine Bilirubin NEGATIVE NEGATIVE mg/dL Urine Urobilinogen 0.2 0.2-1.0 mg/dL Urine Leukocyte Esterase NEGATIVE NEGATIVE Delgado/uL Urine RBC None 0-1 /HPF Urine WBC 0-1 0-1 /HPF Urine Squamous Epithelial Cells RARE 0-2 /HPF Urine Bacteria RARE None Seen /HPF Current Medications Medications (Trade) Dose Ordered Sig/Berenice Route PRN Reason Start Time Stop Time Status Last Admin Dose Admin Acetaminophen (TYLenol 325MG TAB) 650 mg Q6H PRN PO MILD PAIN (1-3) 03/12/24 19:30 04/11/24 19:29 03/13/24 02:15 650 MG Ceftriaxone Sodium (ROCEphine 1G INJ) 1 gm Q24H IVPB 03/13/24 16:00 03/23/24 15:59 Dextrose (D50w) 50 ml AD PRN IV HYPOGLYCEMIA PROTOCOL 03/13/24 02:00 04/12/24 01:59 Glucagon (Glucagon 1mg Kit) 1 mg AD PRN IM HYPOGLYCEMIA PROTOCOL 03/13/24 02:00 04/12/24 01:59 Guaifenesin/ Dextromethorphan (RobiTUSSin DM 200/20MG 10ML) 10 ml Q6H PRN PO COUGH 03/13/24 05:00 04/12/24 04:59 03/13/24 05:10 10 ML Insulin Human Regular (humuLIN R 100 UNIT/ML 3ML) INSULIN SLIDING SCAL... ACHS SQ 03/13/24 07:30 04/12/24 07:29 03/13/24 06:18 16 UNIT Lactated Ringer's 1,000 ml @ 100 mls/hr Q10H IV 03/12/24 19:30 04/11/24 19:29 03/12/24 19:49 100 MLS/HR Magnesium Sulfate 50 ml @ 0 mls/hr PROTOCOL PRN IV MAGNESIUM PROTOCOL 03/13/24 06:30 04/12/24 06:29 03/13/24 06:15 25 MLS/HR Morphine Sulfate (morPHINE 2MG SYG) 2 mg Q4H PRN IVP SEVERE PAIN (7-10) 03/12/24 19:30 03/19/24 19:29 03/12/24 21:48 2 MG Ondansetron HCl (zoFRAN 4MG INJ) 4 mg Q6H PRN IV NAUSEA/VOMITING 03/12/24 19:30 04/11/24 19:29 03/12/24 23:46 4 MG Oseltamivir Phosphate (Tamiflu) 75 mg BID PO 03/13/24 09:00 03/18/24 08:59 03/13/24 07:50 75 MG Tramadol HCl (UltRAM) 50 mg Q6H PRN PO MODERATE PAIN (4-6) 03/12/24 19:30 03/17/24 19:29 DIAGNOSTICS / RADIOLOGY: [ ] ASSESSMENT: Fever unknown origin, POA Vitals syndrome, POA Influenza A POA Dehydration, POA Elevated lactic acid in the setting of dehydration, POA Type 2 diabetes with hyperglycemia POA hypomagnesemia POA PLAN: Admitting patient to medical-surgical floor IVF's: Lactated Ringer's at 100 mL/hour ABT's; Rocephin IV and Tamiflu po Follow up culture results and adjust antibiotic accordingly Insulin sliding scale per protocol; Hypoglycemia protocol Zofran as needed for nausea and vomiting replace electrolytes as needed basis as per protocol Tylenol as needed for pain or fever CBC BMP in the morning all questions addressed Discussed patient's case and plan of care with the attending physician ATTESTATION BY PHYSICIAN I have seen and examined the patient. I reviewed the documentation, medical decision making, and treatment plan as noted by the mid-level provider above. I agree with the findings and plan of care. YADY ADDISON MD, ELIZABETH NP Mar 13, 2024 09:10
[2024-03-13 11:45] VITALS: BP 144/77; PULSE 79; RESP 20; TEMP 100.2
[2024-03-13] MEDS: traMADol HCL 50 MG TABLET PO PRN (14:19)
--- NOTE | 2024-03-13 15:41 | NUR ---
DCP Pt awake, alert, oriented X3 lives with mother Adamaris Bentley [phone]. Pt does not have medical equipment and is able to perform ADLs. Pt does not have have PCP, provided pt with [facility] and anticipates discharge for home. Addendum: 03/13/24 at 1548 by YARELY HEATON RN CM Amended: Links added.
[2024-03-13] MEDS: cefTRIAXone 1G VIAL IVPB SCH (15:58)
[2024-03-13 16:00] VITALS: BP 143/92; PULSE 76; RESP 20; TEMP 98.3
[2024-03-13 20:00] VITALS: BP 143/75; PULSE 77; RESP 20; TEMP 98; O2SAT 99
[2024-03-14] VITALS (8 sets, daily range): BP systolic 120–149; BP diastolic 68–95; PULSE 68–77; RESP 16–20; TEMP 97.5–98.8; O2SAT 99
[2024-03-14 07:01] LABS: BASOPHILS # (AUTO) 0.01 K/uL (0.00-0.20); BASOPHILS % (AUTO) 0.3 % (0.0-5.0); EOSINOPHILS # (AUTO) 0.06 K/uL (0.00-0.70); EOSINOPHILS % (AUTO) 1.7 % (0.0-8.0); HEMATOCRIT 35.7 % (36-48); IMMATURE GRANULOCYTE ABSOLUTE 0.02 K/uL (0-1); LYMPHOCYTES # (AUTO) 1.1 K/uL (1.0-4.8); LYMPHOCYTES % (AUTO) 30.5 % (21.0-51.0); MEAN CORPUSCULAR HEMOGLOBIN 30.8 pg (27.0-33.0); MEAN CORPUSCULAR HGB CONC 34.2 g/dL (32.0-36.0); MEAN CORPUSCULAR VOLUME 90.2 fL (79-99); MONOCYTES # (AUTO) 0.5 K/uL (0.1-1.0); MONOCYTES % (AUTO) 14.1 % (3.0-13.0); NEUTROPHILS # (AUTO) 1.9 K/uL (1.8-7.7); NEUTROPHILS % (AUTO) 52.8 % (40.0-77.0); PLATELET COUNT (AUTO) 142 K/uL (130-400); RED BLOOD CELL COUNT(AUTO) 3.96 MIL/uL (4.00-5.50); RED CELL DISTRIBUTION WIDTH 12.2 % (11.0-15.5); WHITE BLOOD COUNT (AUTO) 3.6 K/uL (4.8-10.8)
[2024-03-14 07:17] LABS: ALBUMIN 2.7 g/dL (3.5-5.0); BILIRUBIN,TOTAL 0.2 mg/dL (0.2-1.0); CREATININE 0.7 mg/dL (0.5-1.0); MAGNESIUM 1.6 mg/dL (1.80-2.40); POTASSIUM 3.7 mmol/L (3.5-5.1); TOTAL PROTEIN, SERUM 5.9 g/dL (6.0-8.3)
[2024-03-14] MEDS ORDERED: PoTASSium chl 10% ELIXIR 20MEQ 20 MEQ/15 ML UDCUP PO PRN (13:00)
[2024-03-14] MEDS: PoTASSium chloRIDE 20MEQ ER 20 MEQ ERTAB PO PRN (14:00)
[2024-03-14 15:23] LABS: MAGNESIUM 2.7 mg/dL (1.80-2.40); POTASSIUM 3.9 mmol/L (3.5-5.1)
--- NOTE | 2024-03-14 18:05 | PN ---
[facility] PROGRESS NOTE Date of Service: Mar 14, 2024 Time of Service: 18:00 SUBJECTIVE: [ ] This is a 43-year-old female that presents in ED with chief complaints fever chills flank pain. Urine was negative. Blood cultures in process. Patient is seen and examined. No family available at the bedside Denied chest pain or shortness for breath, she has had nausea and vomiting all day however. She has received Zofran on two occasions. No diarrhea. She was flu A positive REVIEW OF SYSTEMS CONSTITUTIONAL: Denies night sweats. No unintentional weight loss reported. Complaints of fever and chills, bilateral flank pain, nausea we will vomiting we will body aches, generalized body weakness and fatigue NEUROLOGICAL: Denies headache, amaurosis fugax, motor weakness, sensory deficit, vertigo/spinning sensation, gait abnormalities, or tremors. ENT: No hearing loss, otalgia, otorrhea, rhinitis, rhinorrhea, hoarseness, or sore throat. CARDIOVASCULAR: Denies any exertional angina, dyspnea on exertion, orthopnea, p aroxysmal nocturnal dyspnea, palpitations, life-threatening arrhythmias, claudication. PULMONARY: Denies any shortness of breath, cough, phlegm/sputum, hemoptysis, pleuritic chest pain. SLEEP: Denies morning headaches, daytime somnolence or napping. Denies difficulty falling asleep, staying asleep, waking from sleep. Denies knowledge of snoring. GASTROINTESTINAL: Denies any type of dysphagia to either liquids or solids. Denies pyrosis, early satiety, abdominal pain, diarrhea, constipation, or changes in stool consistency or caliber. Denies coffee-ground emesis, hematemesis, hematochezia, or melanotic stools. Complaints of nausea and vomiting GENITOURINARY: Denies frequency, urgency, nocturia, hematuria or incontinence (Storage/Irritative symptoms.) Low urinary stream, straining to void, urinary intermittency or hesitancy, splitting of the voiding stream, terminal dribbling. ENDOCRINOLOGIC: Denies polyuria, polydipsia, polyphagia or heat/cold intolerances. HEMATOLOGIC: Denies thrombophilia/previous clots, or coagulopathy/bleeding disorders. ONCOLOGIC: Denies personal history of malignancy. DERMATOLOGIC: Denies rashes or pruritus. PSYCHIATRIC: Denies any suicidal or homicidal ideation. Denies hallucinations. PHYSICAL EXAM GENERAL APPEARANCE: The patient is awake, alert, and oriented, acutely ill- appearing middle-aged female NEUROLOGICAL: Cranial nerves II-XII grossly intact. nonfocal exam. HEENT: Face is symmetric. Pupils are equal and reactive. Extraocular movements are intact. NECK: Supple. No JVD. No thyromegaly. CHEST: Normal chest expansion. No Telemetry. LUNGS: Absence of any rales, rhonchi or any wheezing. CARDIOVASCULAR: Regular. S1 and S2 normal. No appreciable rubs, murmurs or gallops. ABDOMEN: Soft, nontender, and nondistended. There is no rebound, voluntary guarding, or rigidity. : Deferred. No Patterson. EXTREMITIES: Non-edematous and not cyanotic. No clubbing. Good capillary refill. SKIN: No skin breakdown. Vital Signs (last 8hr) Date Time Temp Pulse Resp B/P (MAP) Pulse Ox O2 Delivery O2 Flow Rate FiO2 03/14/24 16:00 98.4 70 18 138/94 96 Room Air 03/14/24 12:00 98.1 69 18 120/68 100 Room Air LABS: Laboratory: Test 03/14/24 15:43 03/14/24 15:05 03/14/24 06:49 03/12/24 20:28 Range/Units Whole Blood Glucose 210 H 70-110 MG/DL Potassium Level 3.9 3.5-5.1 mmol/L Magnesium Level 2.70 H 1.80-2.40 mg/dL White Blood Count 3.6 L 4.8-10.8 K/uL Red Blood Count 3.96 L 4.00-5.50 MIL/uL Hemoglobin 12.2 12.0-16.0 g/dL Hematocrit 35.7 L 36-48 % Mean Corpuscular Volume 90.2 79-99 fL Mean Corpuscular Hemoglobin 30.8 27.0-33.0 pg Mean Corpuscular Hemoglobin Concent 34.2 32.0-36.0 g/dL Red Cell Distribution Width 12.2 11.0-15.5 % Platelet Count 142 130-400 K/uL Mean Platelet Volume 10.6 H 7.5-10.5 fL Immature Granulocyte % (Auto) 0.6 0-1 % Neutrophils (%) (Auto) 52.8 40.0-77.0 % Lymphocytes (%) (Auto) 30.5 21.0-51.0 % Monocytes (%) (Auto) 14.1 H 3.0-13.0 % Eosinophils (%) (Auto) 1.7 0.0-8.0 % Basophils (%) (Auto) 0.3 0.0-5.0 % Neutrophils # (Auto) 1.9 1.8-7.7 K/uL Lymphocytes # (Auto) 1.1 1.0-4.8 K/uL Monocytes # (Auto) 0.5 0.1-1.0 K/uL Eosinophils # (Auto) 0.06 0.00-0.70 K/uL Basophils # (Auto) 0.01 0.00-0.20 K/uL Absolute Immature Granulocyte (auto 0.02 0-1 K/uL Nucleated Red Blood Cells 0.0 0.0-0.19 % Sodium Level 139 136-145 mmol/L Chloride Level 106 101-111 mmol/L Carbon Dioxide Level 26 21-32 mmol/L Blood Urea Nitrogen 4 L 7-18 mg/dL Creatinine 0.7 0.5-1.0 mg/dL Glomerular Filtration Rate Calc 111 >90 mL/min Random Glucose 232 H 70-105 mg/dL Total Calcium 7.8 L 8.5-10.1 mg/dL Total Bilirubin 0.2 0.2-1.0 mg/dL Aspartate Amino Transf (AST/SGOT) 90 H 10-37 U/L Alanine Aminotransferase (ALT/SGPT) 70 12-78 U/L Alkaline Phosphatase 84 50-136 U/L Total Protein 5.9 L 6.0-8.3 g/dL Albumin 2.7 L 3.5-5.0 g/dL Lactic Acid Level 2.6 H 0.8-2.5 mmol/L Test 03/12/24 19:54 Range/Units Influenza Type A Antigen Positive For Type A *A NEGATIVE Influenza Type B Antigen Negative For Type B NEGATIVE Current Medications Medications (Trade) Dose Ordered Sig/Berenice Route PRN Reason Start Time Stop Time Status Last Admin Dose Admin Acetaminophen (TYLenol 325MG TAB) 650 mg Q6H PRN PO MILD PAIN (1-3) 03/12/24 19:30 04/11/24 19:29 03/14/24 08:25 650 MG Ceftriaxone Sodium (ROCEphine 1G INJ) 1 gm Q24H IVPB 03/13/24 16:00 03/23/24 15:59 03/14/24 15:54 1 GM Dextrose (D50w) 50 ml AD PRN IV HYPOGLYCEMIA PROTOCOL 03/13/24 02:00 04/12/24 01:59 Glucagon (Glucagon 1mg Kit) 1 mg AD PRN IM HYPOGLYCEMIA PROTOCOL 03/13/24 02:00 04/12/24 01:59 Guaifenesin/ Dextromethorphan (RobiTUSSin DM 200/20MG 10ML) 10 ml Q6H PRN PO COUGH 03/13/24 05:00 04/12/24 04:59 03/14/24 03:47 10 ML Insulin Human Regular (humuLIN R 100 UNIT/ML 3ML) INSULIN SLIDING SCAL... ACHS SQ 03/13/24 07:30 04/12/24 07:29 03/14/24 17:43 6 UNIT Lactated Ringer's 1,000 ml @ 100 mls/hr Q10H IV 03/12/24 19:30 04/11/24 19:29 03/14/24 08:27 100 MLS/HR Magnesium Sulfate 50 ml @ 0 mls/hr PROTOCOL PRN IV MAGNESIUM PROTOCOL 03/13/24 06:30 04/12/24 06:29 03/14/24 11:12 25 MLS/HR Morphine Sulfate (morPHINE 2MG SYG) 2 mg Q4H PRN IVP SEVERE PAIN (7-10) 03/12/24 19:30 03/19/24 19:29 03/12/24 21:48 2 MG Ondansetron HCl (zoFRAN 4MG INJ) 4 mg Q6H PRN IV NAUSEA/VOMITING 03/12/24 19:30 04/11/24 19:29 03/14/24 15:54 4 MG Oseltamivir Phosphate (Tamiflu) 75 mg BID PO 03/13/24 09:00 03/18/24 08:59 03/14/24 08:25 75 MG Potassium Chloride (K-Dur/Klor-Con 20meq) 20 meq AD PRN PO POTASSIUM PROTOCOL 03/14/24 13:00 04/13/24 12:59 03/14/24 14:00 20 MEQ Potassium Chloride (KCl 10% Elixir 20meq/15ml) 20 meq AD PRN PO POTASSIUM PROTOCOL 03/14/24 13:00 04/13/24 12:59 Tramadol HCl (UltRAM) 50 mg Q6H PRN PO MODERATE PAIN (4-6) 03/12/24 19:30 03/17/24 19:29 03/14/24 15:55 50 MG DIAGNOSTICS / RADIOLOGY: [ ] ASSESSMENT: Fever unknown origin, POA Viralsyndrome, POA Influenza A POA Dehydration, POA Elevated lactic acid in the setting of dehydration, POA Type 2 diabetes with hyperglycemia POA hypomagnesemia POA PLAN: Admitting patient to medical-surgical floor IVF's: Lactated Ringer's at 100 mL/hour ABT's; Rocephin IV and Tamiflu po Follow up culture results and adjust antibiotic accordingly Insulin sliding scale per protocol; Hypoglycemia protocol Zofran as needed for nausea and vomiting replace electrolytes as needed basis as per protocol Tylenol as needed for pain or fever CBC BMP in the morning all questions addressed TARI CARTER MD Mar 14, 2024 18:05
[2024-03-15 03:31] VITALS: BP 118/62; PULSE 62; RESP 17; TEMP 98.2
[2024-03-15 05:01] LABS: BASOPHILS # (AUTO) 0.01 K/uL (0.00-0.20); BASOPHILS % (AUTO) 0.3 % (0.0-5.0); EOSINOPHILS # (AUTO) 0.06 K/uL (0.00-0.70); EOSINOPHILS % (AUTO) 1.8 % (0.0-8.0); HEMATOCRIT 38.3 % (36-48); IMMATURE GRANULOCYTE ABSOLUTE 0.02 K/uL (0-1); LYMPHOCYTES # (AUTO) 1.3 K/uL (1.0-4.8); LYMPHOCYTES % (AUTO) 40.4 % (21.0-51.0); MEAN CORPUSCULAR HEMOGLOBIN 31.2 pg (27.0-33.0); MEAN CORPUSCULAR HGB CONC 33.9 g/dL (32.0-36.0); MEAN CORPUSCULAR VOLUME 91.8 fL (79-99); MONOCYTES # (AUTO) 0.3 K/uL (0.1-1.0); MONOCYTES % (AUTO) 10.4 % (3.0-13.0); NEUTROPHILS # (AUTO) 1.5 K/uL (1.8-7.7); NEUTROPHILS % (AUTO) 46.5 % (40.0-77.0); PLATELET COUNT (AUTO) 158 K/uL (130-400); RED BLOOD CELL COUNT(AUTO) 4.17 MIL/uL (4.00-5.50); WHITE BLOOD COUNT (AUTO) 3.3 K/uL (4.8-10.8)
[2024-03-15 05:18] LABS: HEMOGLOBIN A1C 11.7 % (4.0-6.0)
[2024-03-15 05:37] LABS: ALBUMIN 2.8 g/dL (3.5-5.0); BILIRUBIN,TOTAL 0.3 mg/dL (0.2-1.0); CREATININE 0.7 mg/dL (0.5-1.0); THYROID STIMULATING HORMONE 0.7 uIU/mL (0.36-3.74); TOTAL PROTEIN, SERUM 6.2 g/dL (6.0-8.3)
[2024-03-15 08:17] VITALS: BP 121/84; PULSE 69; RESP 18; TEMP 97.7
--- NOTE | 2024-03-15 09:11 | PN ---
[facility] PROGRESS NOTE Date of Service: Mar 15, 2024 Time of Service: 08:59 SUBJECTIVE: [ ] This is a 43-year-old female that presents in ED with chief complaints fever chills flank pain. Urine was negative. Blood cultures in process. Patient is seen and examined. No family available at the bedside Denied chest pain or shortness for breath, she has had nausea and vomiting all day however. She has received Zofran on two occasions. No diarrhea. She was flu A positive 03/15/24 patient is seen and examined reviewed chart patient's LFTs elevated patient on Tamiflu we will be discontinued patient has been afebrile blood cultures negative over 48 hours. Patient denies abdominal pain chest pain or shortness for breath. REVIEW OF SYSTEMS CONSTITUTIONAL: Denies night sweats. No unintentional weight loss reported. Complaints of fever and chills, bilateral flank pain, nausea we will vomiting we will body aches, generalized body weakness and fatigue NEUROLOGICAL: Denies headache, amaurosis fugax, motor weakness, sensory deficit, vertigo/spinning sensation, gait abnormalities, or tremors. ENT: No hearing loss, otalgia, otorrhea, rhinitis, rhinorrhea, hoarseness, or sore throat. CARDIOVASCULAR: Denies any exertional angina, dyspnea on exertion, orthopnea, paroxysmal nocturnal dyspnea, palpitations, life-threatening arrhythmias, claudication. PULMONARY: Denies any shortness of breath, cough, phlegm/sputum, hemoptysis, pleuritic chest pain. SLEEP: Denies morning headaches, daytime somnolence or napping. Denies difficulty falling asleep, staying asleep, waking from sleep. Denies knowledge of snoring. GASTROINTESTINAL: Denies any type of dysphagia to either liquids or solids. Denies pyrosis, early satiety, abdominal pain, diarrhea, constipation, or changes in stool consistency or caliber. Denies coffee-ground emesis, hematemesis, hematochezia, or melanotic stools. Complaints of nausea and vomiting GENITOURINARY: Denies frequency, urgency, nocturia, hematuria or incontinence (Storage/Irritative symptoms.) Low urinary stream, straining to void, urinary intermittency or hesitancy, splitting of the voiding stream, terminal dribbling. ENDOCRINOLOGIC: Denies polyuria, polydipsia, polyphagia or heat/cold intolerances. HEMATOLOGIC: Denies thrombophilia/previous clots, or coagulopathy/bleeding disorders. ONCOLOGIC: Denies personal history of malignancy. DERMATOLOGIC: Denies rashes or pruritus. PSYCHIATRIC: Denies any suicidal or homicidal ideation. Denies hallucinations. PHYSICAL EXAM GENERAL APPEARANCE: The patient is awake, alert, and oriented, acutely ill- appearing middle-aged female NEUROLOGICAL: Cranial nerves II-XII grossly intact. nonfocal exam. HEENT: Face is symmetric. Pupils are equal and reactive. Extraocular movements are intact. NECK: Supple. No JVD. No thyromegaly. CHEST: Normal chest expansion. No Telemetry. LUNGS: Absence of any rales, rhonchi or any wheezing. CARDIOVASCULAR: Regular. S1 and S2 normal. No appreciable rubs, murmurs or gallops. ABDOMEN: Soft, nontender, and nondistended. There is no rebound, voluntary guarding, or rigidity. : Deferred. No Patterson. EXTREMITIES: Non-edematous and not cyanotic. No clubbing. Good capillary refill. SKIN: No skin breakdown. Vital Signs (last 8hr) Date Time Temp Pulse Resp B/P (MAP) Pulse Ox O2 Delivery O2 Flow Rate FiO2 03/15/24 08:17 97.7 69 18 121/84 99 Room Air 03/15/24 03:31 98.2 62 17 118/62 99 Room Air LABS: Laboratory: Test 03/15/24 05:01 03/15/24 04:55 03/14/24 15:05 Range/Units Whole Blood Glucose 204 H 70-110 MG/DL White Blood Count 3.3 L 4.8-10.8 K/uL Red Blood Count 4.17 4.00-5.50 MIL/uL Hemoglobin 13.0 12.0-16.0 g/dL Hematocrit 38.3 36-48 % Mean Corpuscular Volume 91.8 79-99 fL Mean Corpuscular Hemoglobin 31.2 27.0-33.0 pg Mean Corpuscular Hemoglobin Concent 33.9 32.0-36.0 g/dL Red Cell Distribution Width 12.0 11.0-15.5 % Platelet Count 158 130-400 K/uL Mean Platelet Volume 10.5 7.5-10.5 fL Immature Granulocyte % (Auto) 0.6 0-1 % Neutrophils (%) (Auto) 46.5 40.0-77.0 % Lymphocytes (%) (Auto) 40.4 21.0-51.0 % Monocytes (%) (Auto) 10.4 3.0-13.0 % Eosinophils (%) (Auto) 1.8 0.0-8.0 % Basophils (%) (Auto) 0.3 0.0-5.0 % Neutrophils # (Auto) 1.5 L 1.8-7.7 K/uL Lymphocytes # (Auto) 1.3 1.0-4.8 K/uL Monocytes # (Auto) 0.3 0.1-1.0 K/uL Eosinophils # (Auto) 0.06 0.00-0.70 K/uL Basophils # (Auto) 0.01 0.00-0.20 K/uL Absolute Immature Granulocyte (auto 0.02 0-1 K/uL Nucleated Red Blood Cells 0.0 0.0-0.19 % Sodium Level 141 136-145 mmol/L Potassium Level 4.0 3.5-5.1 mmol/L Chloride Level 104 101-111 mmol/L Carbon Dioxide Level 25 21-32 mmol/L Blood Urea Nitrogen 4 L 7-18 mg/dL Creatinine 0.7 0.5-1.0 mg/dL Glomerular Filtration Rate Calc 111 >90 mL/min Random Glucose 204 H 70-105 mg/dL Hemoglobin A1c 11.7 H 4.0-6.0 % Estimated Average Glucose (eAG) 289 H 70-126 mg/dL Total Calcium 8.1 L 8.5-10.1 mg/dL Total Bilirubin 0.3 # 0.2-1.0 mg/dL Aspartate Amino Transf (AST/SGOT) 268 H 10-37 U/L Alanine Aminotransferase (ALT/SGPT) 144 #H 12-78 U/L Alkaline Phosphatase 177 #H 50-136 U/L Total Protein 6.2 6.0-8.3 g/dL Albumin 2.8 L 3.5-5.0 g/dL Thyroid Stimulating Hormone (TSH) 0.70 0.36-3.74 uIU/mL Magnesium Level 2.70 H 1.80-2.40 mg/dL Current Medications Medications (Trade) Dose Ordered Sig/Berenice Route PRN Reason Start Time Stop Time Status Last Admin Dose Admin Acetaminophen (TYLenol 325MG TAB) 650 mg Q6H PRN PO MILD PAIN (1-3) 03/12/24 19:30 04/11/24 19:29 03/14/24 08:25 650 MG Ceftriaxone Sodium (ROCEphine 1G INJ) 1 gm Q24H IVPB 03/13/24 16:00 03/23/24 15:59 03/14/24 15:54 1 GM Dextrose (D50w) 50 ml AD PRN IV HYPOGLYCEMIA PROTOCOL 03/13/24 02:00 04/12/24 01:59 Glucagon (Glucagon 1mg Kit) 1 mg AD PRN IM HYPOGLYCEMIA PROTOCOL 03/13/24 02:00 04/12/24 01:59 Guaifenesin/ Dextromethorphan (RobiTUSSin DM 200/20MG 10ML) 10 ml Q6H PRN PO COUGH 03/13/24 05:00 04/12/24 04:59 03/15/24 01:19 10 ML Insulin Human Regular (humuLIN R 100 UNIT/ML 3ML) INSULIN SLIDING SCAL... ACHS SQ 03/13/24 07:30 04/12/24 07:29 03/15/24 06:31 6 UNIT Lactated Ringer's 1,000 ml @ 100 mls/hr Q10H IV 03/12/24 19:30 04/11/24 19:29 03/14/24 19:31 100 MLS/HR Magnesium Sulfate 50 ml @ 0 mls/hr PROTOCOL PRN IV MAGNESIUM PROTOCOL 03/13/24 06:30 04/12/24 06:29 03/14/24 11:12 25 MLS/HR Morphine Sulfate (morPHINE 2MG SYG) 2 mg Q4H PRN IVP SEVERE PAIN (7-10) 03/12/24 19:30 03/19/24 19:29 03/14/24 19:30 2 MG Ondansetron HCl (zoFRAN 4MG INJ) 4 mg Q6H PRN IV NAUSEA/VOMITING 03/12/24 19:30 04/11/24 19:29 03/15/24 01:19 4 MG Oseltamivir Phosphate (Tamiflu) 75 mg BID PO 03/13/24 09:00 03/18/24 08:59 03/14/24 19:28 75 MG Potassium Chloride (K-Dur/Klor-Con 20meq) 20 meq AD PRN PO POTASSIUM PROTOCOL 03/14/24 13:00 04/13/24 12:59 03/14/24 14:00 20 MEQ Potassium Chloride (KCl 10% Elixir 20meq/15ml) 20 meq AD PRN PO POTASSIUM PROTOCOL 03/14/24 13:00 04/13/24 12:59 Tramadol HCl (UltRAM) 50 mg Q6H PRN PO MODERATE PAIN (4-6) 03/12/24 19:30 03/17/24 19:29 03/14/24 15:55 50 MG DIAGNOSTICS / RADIOLOGY: [ ] ASSESSMENT: Fever unknown origin, POA resolved Viral syndrome, POA Influenza A POA Dehydration, POA resolved Elevated lactic acid in the setting of dehydration, POA Type 2 diabetes with hyperglycemia POA A1c 11.2 hypomagnesemia POA elevated LFT's: most likely induced medication Tamiflu not POA PLAN: Admitting patient to medical-surgical floor IVF's:Heplock ABT's; Rocephin IV continue will stop Tamiflu due to elevated LFTs. Discussed on modified diet: 1800 ada and exercising given to A1c 11.2 will be discharged on Metformin Insulin sliding scale per protocol; Hypoglycemia protocol Zofran as needed for nausea and vomiting replace electrolytes as needed basis as per protocol Tylenol as needed for pain or fever CBC BMP in the morning all questions addressed ATTESTATION BY PHYSICIAN I have seen and examined the patient. I reviewed the documentation, medical decision making, and treatment plan as noted by the mid-level provider above. I agree with the findings and plan of care. YADY ADDISON MD, ELIZABETH NP Mar 15, 2024 09:11
[2024-03-15 11:58] VITALS: BP 141/76; PULSE 56; RESP 18; TEMP 97.9
--- NOTE | 2024-03-15 17:49 | HMCIMG ---
Exam: NONCONTRAST CT BRAIN REASON: PERSISTENT HEADACHES . COMPARISON: 10/30/2018 TECHNIQUE: Images are obtained from vertex to the skull base. The exam was performed without IV contrast. FINDINGS: There is normal appearing brain parenchyma. There are no focal mass lesions. There is is no evidence of intracranial hemorrhage or acute stroke. Ventricles and sulci appear normal. Posterior fossa and brainstem structures are unremarkable. Paranasal sinuses and remaining extracranial soft tissues appear normal as well. IMPRESSION: 1. Normal noncontrast CT brain. CT was performed with one or more following dose reduction techniques: automated exposure control, adjustment of the mA and kv according to patient's size, or use of a iterative reconstruction technique.
[2024-03-15 18:10] VITALS: BP 122/74; PULSE 63; RESP 18; TEMP 98.3
--- NOTE | 2024-03-15 18:56 | HMCIMG ---
US ABDOMINAL RUQ\E\LTD HISTORY: elevated LFT COMPARISON: None FINDINGS: There is moderate fatty infiltration of the liver. There are no focal liver masses. The liver is mildly enlarged at 18 cm.The gallbladder is surgically absent. Common duct is normal. Right kidney is normal with no evidence of mass, hydronephrosis or stone.The pancreas is obscured by overlying bowel gas. IMPRESSION: 1. Moderate hepatic steatosis, the liver is mildly enlarged at 18 cm. 2. But absent gallbladder. 3. Otherwise normal exam although the pancreas was not visualized.
[2024-03-15 19:45] VITALS: O2SAT 99
[2024-03-15 20:00] VITALS: BP 128/74; PULSE 67; RESP 17; TEMP 98.3
[2024-03-16] VITALS: BP 115/62; PULSE 64; RESP 17; TEMP 98.1
[2024-03-16 04:00] VITALS: BP 115/60; PULSE 56; RESP 16; TEMP 98.1
[2024-03-16 05:44] LABS: BASOPHILS # (AUTO) 0.01 K/uL (0.00-0.20); BASOPHILS % (AUTO) 0.3 % (0.0-5.0); EOSINOPHILS # (AUTO) 0.15 K/uL (0.00-0.70); EOSINOPHILS % (AUTO) 3.9 % (0.0-8.0); HEMATOCRIT 38.2 % (36-48); IMMATURE GRANULOCYTE ABSOLUTE 0.02 K/uL (0-1); LYMPHOCYTES % (AUTO) 52.2 % (21.0-51.0); MEAN CORPUSCULAR HEMOGLOBIN 30.7 pg (27.0-33.0); MEAN CORPUSCULAR VOLUME 90.3 fL (79-99); MONOCYTES # (AUTO) 0.3 K/uL (0.1-1.0); MONOCYTES % (AUTO) 7.6 % (3.0-13.0); NEUTROPHILS # (AUTO) 1.4 K/uL (1.8-7.7); NEUTROPHILS % (AUTO) 35.5 % (40.0-77.0); PLATELET COUNT (AUTO) 195 K/uL (130-400); RED BLOOD CELL COUNT(AUTO) 4.23 MIL/uL (4.00-5.50); RED CELL DISTRIBUTION WIDTH 12.1 % (11.0-15.5); WHITE BLOOD COUNT (AUTO) 3.8 K/uL (4.8-10.8)
[2024-03-16 06:03] LABS: ALBUMIN 2.8 g/dL (3.5-5.0); BILIRUBIN,TOTAL 0.2 mg/dL (0.2-1.0); CREATININE 0.8 mg/dL (0.5-1.0); MAGNESIUM 1.8 mg/dL (1.80-2.40); POTASSIUM 3.4 mmol/L (3.5-5.1); TOTAL PROTEIN, SERUM 6.2 g/dL (6.0-8.3)
[2024-03-16 07:54] VITALS: BP 119/63; PULSE 64; RESP 16; TEMP 98.4
[2024-03-16 08:00] VITALS: O2SAT 99
--- NOTE | 2024-03-16 10:21 | PN ---
[facility] PROGRESS NOTE Date of Service: Mar 16, 2024 Time of Service: 10:09 SUBJECTIVE: [ ] This is a 43-year-old female that presents in ED with chief complaints fever chills flank pain. Urine was negative. Blood cultures in process. Patient is seen and examined. No family available at the bedside Denied chest pain or shortness for breath, she has had nausea and vomiting all day however. She has received Zofran on two occasions. No diarrhea. She was flu A positive 03/15/24 patient is seen and examined reviewed chart patient's LFTs elevated patient on Tamiflu we will be discontinued patient has been afebrile blood cultures negative over 48 hours. Patient denies abdominal pain chest pain or shortness for breath. 03/16/24 patient is seen and examined. Reviewed LFTs trending down. Right quad ultrasound Moderate hepatic steatosis, the liver is mildly enlarged at 18 cm. Get a MRCP. Presents a headaches resolved CT head was negative. Patient reports no abdominal pain. The patient is fully awake alert oriented x3. patient with cough sounded congested DuoNeb x1. REVIEW OF SYSTEMS CONSTITUTIONAL: Denies night sweats. No unintentional weight loss reported. Complaints of fever and chills, bilateral flank pain, nausea we will vomiting we will body aches, generalized body weakness and fatigue NEUROLOGICAL: Denies headache, amaurosis fugax, motor weakness, sensory deficit, vertigo/spinning sensation, gait abnormalities, or tremors. ENT: No hearing loss, otalgia, otorrhea, rhinitis, rhinorrhea, hoarseness, or sore throat. CARDIOVASCULAR: Denies any exertional angina, dyspnea on exertion, orthopnea, paroxysmal nocturnal dyspnea, palpitations, life-threatening arrhythmias, claudication. PULMONARY: Denies any shortness of breath, cough, phlegm/sputum, hemoptysis, pleuritic chest pain. SLEEP: Denies morning headaches, daytime somnolence or napping. Denies difficulty falling asleep, staying asleep, waking from sleep. Denies knowledge of snoring. GASTROINTESTINAL: Denies any type of dysphagia to either liquids or solids. Denies pyrosis, early satiety, abdominal pain, diarrhea, constipation, or changes in stool consistency or caliber. Denies coffee-ground emesis, hematemesis, hematochezia, or melanotic stools. Complaints of nausea and vomiting GENITOURINARY: Denies frequency, urgency, nocturia, hematuria or incontinence (Storage/Irritative symptoms.) Low urinary stream, straining to void, urinary intermittency or hesitancy, splitting of the voiding stream, terminal dribbling. ENDOCRINOLOGIC: Denies polyuria, polydipsia, polyphagia or heat/cold intolerances. HEMATOLOGIC: Denies thrombophilia/previous clots, or coagulopathy/bleeding disorders. ONCOLOGIC: Denies personal history of malignancy. DERMATOLOGIC: Denies rashes or pruritus. PSYCHIATRIC: Denies any suicidal or homicidal ideation. Denies hallucinations. PHYSICAL EXAM GENERAL APPEARANCE: The patient is awake, alert, and oriented, acutely ill- appearing middle-aged female NEUROLOGICAL: Cranial nerves II-XII grossly intact. nonfocal exam. HEENT: Face is symmetric. Pupils are equal and reactive. Extraocular movements are intact. NECK: Supple. No JVD. No thyromegaly. CHEST: Normal chest expansion. No Telemetry. LUNGS: Absence of any rales, rhonchi or any wheezing. CARDIOVASCULAR: Regular. S1 and S2 normal. No appreciable rubs, murmurs or gallops. ABDOMEN: Soft, nontender, and nondistended. There is no rebound, voluntary guarding, or rigidity. : Deferred. No Patterson. EXTREMITIES: Non-edematous and not cyanotic. No clubbing. Good capillary refill. SKIN: No skin breakdown. Vital Signs (last 8hr) Date Time Temp Pulse Resp B/P (MAP) Pulse Ox O2 Delivery O2 Flow Rate FiO2 03/16/24 07:54 98.4 64 16 119/63 100 Room Air 03/16/24 04:00 98.1 56 16 115/60 97 Room Air LABS: Laboratory: Test 03/16/24 05:26 03/16/24 05:20 03/15/24 04:55 Range/Units Whole Blood Glucose 255 H 70-110 MG/DL White Blood Count 3.8 L 4.8-10.8 K/uL Red Blood Count 4.23 4.00-5.50 MIL/uL Hemoglobin 13.0 12.0-16.0 g/dL Hematocrit 38.2 36-48 % Mean Corpuscular Volume 90.3 79-99 fL Mean Corpuscular Hemoglobin 30.7 27.0-33.0 pg Mean Corpuscular Hemoglobin Concent 34.0 32.0-36.0 g/dL Red Cell Distribution Width 12.1 11.0-15.5 % Platelet Count 195 130-400 K/uL Mean Platelet Volume 10.5 7.5-10.5 fL Immature Granulocyte % (Auto) 0.5 0-1 % Neutrophils (%) (Auto) 35.5 L 40.0-77.0 % Lymphocytes (%) (Auto) 52.2 H 21.0-51.0 % Monocytes (%) (Auto) 7.6 3.0-13.0 % Eosinophils (%) (Auto) 3.9 0.0-8.0 % Basophils (%) (Auto) 0.3 0.0-5.0 % Neutrophils # (Auto) 1.4 L 1.8-7.7 K/uL Lymphocytes # (Auto) 2.0 1.0-4.8 K/uL Monocytes # (Auto) 0.3 0.1-1.0 K/uL Eosinophils # (Auto) 0.15 0.00-0.70 K/uL Basophils # (Auto) 0.01 0.00-0.20 K/uL Absolute Immature Granulocyte (auto 0.02 0-1 K/uL Nucleated Red Blood Cells 0.0 0.0-0.19 % Sodium Level 142 136-145 mmol/L Potassium Level 3.4 L 3.5-5.1 mmol/L Chloride Level 105 101-111 mmol/L Carbon Dioxide Level 27 21-32 mmol/L Blood Urea Nitrogen 9 7-18 mg/dL Creatinine 0.8 0.5-1.0 mg/dL Glomerular Filtration Rate Calc 94 >90 mL/min Random Glucose 243 H 70-105 mg/dL Total Calcium 8.4 L 8.5-10.1 mg/dL Magnesium Level 1.80 1.80-2.40 mg/dL Total Bilirubin 0.2 0.2-1.0 mg/dL Aspartate Amino Transf (AST/SGOT) 65 H 10-37 U/L Alanine Aminotransferase (ALT/SGPT) 98 H 12-78 U/L Alkaline Phosphatase 150 H 50-136 U/L Total Protein 6.2 6.0-8.3 g/dL Albumin 2.8 L 3.5-5.0 g/dL Hemoglobin A1c 11.7 H 4.0-6.0 % Estimated Average Glucose (eAG) 289 H 70-126 mg/dL Thyroid Stimulating Hormone (TSH) 0.70 0.36-3.74 uIU/mL Current Medications Medications (Trade) Dose Ordered Sig/Berenice Route PRN Reason Start Time Stop Time Status Last Admin Dose Admin Acetaminophen (TYLenol 325MG TAB) 650 mg Q6H PRN PO MILD PAIN (1-3) 03/12/24 19:30 04/11/24 19:29 03/15/24 09:46 650 MG Ceftriaxone Sodium (ROCEphine 1G INJ) 1 gm Q24H IVPB 03/13/24 16:00 03/15/24 11:02 DC 03/14/24 15:54 1 GM Dextrose (D50w) 50 ml AD PRN IV HYPOGLYCEMIA PROTOCOL 03/13/24 02:00 04/12/24 01:59 Glucagon (Glucagon 1mg Kit) 1 mg AD PRN IM HYPOGLYCEMIA PROTOCOL 03/13/24 02:00 04/12/24 01:59 Guaifenesin/ Dextromethorphan (RobiTUSSin DM 200/20MG 10ML) 10 ml Q6H PRN PO COUGH 03/13/24 05:00 04/12/24 04:59 03/15/24 01:19 10 ML Insulin Human Regular (humuLIN R 100 UNIT/ML 3ML) INSULIN SLIDING SCAL... ACHS SQ 03/13/24 07:30 04/12/24 07:29 03/16/24 07:20 10 UNIT Lactated Ringer's 1,000 ml @ 100 mls/hr Q10H IV 03/12/24 19:30 03/15/24 09:07 DC 03/14/24 19:31 100 MLS/HR Magnesium Sulfate 50 ml @ 0 mls/hr PROTOCOL PRN IV MAGNESIUM PROTOCOL 03/13/24 06:30 04/12/24 06:29 03/16/24 07:19 25 MLS/HR Morphine Sulfate (morPHINE 2MG SYG) 2 mg Q4H PRN IVP SEVERE PAIN (7-10) 03/12/24 19:30 03/15/24 11:02 DC 03/14/24 19:30 2 MG Ondansetron HCl (zoFRAN 4MG INJ) 4 mg Q6H PRN IV NAUSEA/VOMITING 03/12/24 19:30 04/11/24 19:29 1/2/25 01:19 4 MG Oseltamivir Phosphate (Tamiflu) 75 mg BID PO 03/13/24 09:00 03/15/24 09:07 DC 03/14/24 19:28 75 MG Potassium Chloride (K-Dur/Klor-Con 20meq) 20 meq AD PRN PO POTASSIUM PROTOCOL 03/14/24 13:00 04/13/24 12:59 03/16/24 07:19 20 MEQ Potassium Chloride (KCl 10% Elixir 20meq/15ml) 20 meq AD PRN PO POTASSIUM PROTOCOL 03/14/24 13:00 04/13/24 12:59 Tramadol HCl (UltRAM) 50 mg Q6H PRN PO MODERATE PAIN (4-6) 03/12/24 19:30 03/17/24 19:29 03/14/24 15:55 50 MG DIAGNOSTICS / RADIOLOGY: [ ] ASSESSMENT: Fever unknown origin, POA resolved Viral syndrome, POA Influenza A POA Dehydration, POA resolved Elevated lactic acid in the setting of dehydration, POA Type 2 diabetes with hyperglycemia POA A1c 11.2 hypomagnesemia POA elevated LFT's: most likely induced medication Tamiflu not POA Persistent headaches: resolved Moderate hepatic steatosis, the liver is mildly enlarged at 18 cm. PLAN: Admitting patient to medical-surgical floor IVF's:Heplock RUQ abd: noted MRCP CT head brain noted Discussed on modified diet: 1800 ada and exercising given to A1c 11.2 Insulin sliding scale per protocol; Hypoglycemia protocol Zofran as needed for nausea and vomiting Robitussin p.r.n. for cough DuoNeb x1. replace electrolytes as needed basis as per protocol Tylenol as needed for pain or fever CBC BMP in the morning all questions addressed ATTESTATION BY PHYSICIAN I have seen and examined the patient. I reviewed the documentation, medical decision making, and treatment plan as noted by the mid-level provider above. I agree with the findings and plan of care. YADY ADDISON MD, ELIZABETH NP Mar 16, 2024 10:21
[2024-03-16] MEDS: IpraTROPium/alBUTERol SULFATE 3 ML SOLUTION IH ONE (10:51)
[2024-03-16 11:47] VITALS: BP 138/100; PULSE 67; RESP 21; TEMP 98.6
--- NOTE | 2024-03-16 14:07 | NUR ---
Nutrition consult per T2DM education Reviewed labs, notes, and medications. N/V POA, NPO status, + for flu, IV fluid, insulin, hypokalemia 3.4, hyperglycemia 266, A1C 11.7, elevated AST and ALT, elevated CRP, hypocalcemia 8.4 per chart review. NPO status since 11:19am, PO intake ~50 %when Pt on 75 gm cho, wt via bed scale, no edema, well nourished, no wounds per nursing. Pt reported she has no insurance, has glucometer, no PCP, never check BG, does not like red meat, no mash potato, no bread, expressed frustration with care, discussed how a nurse had put her food in the trash and it out for her to eat, nurse had provided past and a sandwich. Communicated with FNS director. Patient refused T2DM nutrition education. RD left T2DM + HH diet handout at bedside. Recommendations: -Advance diet when medically feasible to 60 gm CHO + HH diet -[place] Pt's preferences -Monitor BM -If no BM >3 days consider stool softener -Monitor electrolytes -Replenish electrolytes per protocol -Monitor wts -Reweigh as able -Order Vit D, vit b-12 labs to rule out deficiencies -Provide b-complex -Recommend Pt to follow up with PCP -Monitor goals of care RD to follow + available for consult per protocol Addendum: 03/16/24 at [address] Amended: Links added.
--- NOTE | 2024-03-16 14:41 | PN ---
[facility] PROGRESS NOTE Date of Service: Mar 16, 2024 Time of Service: 14:37 SUBJECTIVE: [ ] This is a 43-year-old female that presents in ED with chief complaints fever chills flank pain. Urine was negative. Blood cultures in process. Patient is seen and examined. No family available at the bedside Denied chest pain or shortness for breath, she has had nausea and vomiting all day however. She has received Zofran on two occasions. No diarrhea. She was flu A positive 03/15/24 patient is seen and examined reviewed chart patient's LFTs elevated patient on Tamiflu we will be discontinued patient has been afebrile blood cultures negative over 48 hours. Patient denies abdominal pain chest pain or shortness for breath. 03/16/24 patient is seen and examined. Reviewed LFTs trending down. Right quad ultrasound Moderate hepatic steatosis, the liver is mildly enlarged at 18 cm. Get a MRCP. Presents a headaches resolved CT head was negative. Patient reports no abdominal pain. The patient is fully awake alert oriented x3. patient with cough sounded congested DuoNeb x1. uncontrolled A1c [address] Jarrett for insulin regiment. Patient reports being on insulin but was unable to afford it was on metformin but discontinued due to GI disturbance REVIEW OF SYSTEMS CONSTITUTIONAL: Denies night sweats. No unintentional weight loss reported. Complaints of fever and chills, bilateral flank pain, nausea we will vomiting we will body aches, generalized body weakness and fatigue NEUROLOGICAL: Denies headache, amaurosis fugax, motor weakness, sensory deficit, vertigo/spinning sensation, gait abnormalities, or tremors. ENT: No hearing loss, otalgia, otorrhea, rhinitis, rhinorrhea, hoarseness, or sore throat. CARDIOVASCULAR: Denies any exertional angina, dyspnea on exertion, orthopnea, paroxysmal nocturnal dyspnea, palpitations, life-threatening arrhythmias, claudication. PULMONARY: Denies any shortness of breath, cough, phlegm/sputum, hemoptysis, pleuritic chest pain. SLEEP: Denies morning headaches, daytime somnolence or napping. Denies difficulty falling asleep, staying asleep, waking from sleep. Denies knowledge of snoring. GASTROINTESTINAL: Denies any type of dysphagia to either liquids or solids. Denies pyrosis, early satiety, abdominal pain, diarrhea, constipation, or changes in stool consistency or caliber. Denies coffee-ground emesis, hematemesis, hematochezia, or melanotic stools. Complaints of nausea and vomiting GENITOURINARY: Denies frequency, urgency, nocturia, hematuria or incontinence (Storage/Irritative symptoms.) Low urinary stream, straining to void, urinary intermittency or hesitancy, splitting of the voiding stream, terminal dribbling. ENDOCRINOLOGIC: Denies polyuria, polydipsia, polyphagia or heat/cold intolerances. HEMATOLOGIC: Denies thrombophilia/previous clots, or coagulopathy/bleeding disorders. ONCOLOGIC: Denies personal history of malignancy. DERMATOLOGIC: Denies rashes or pruritus. PSYCHIATRIC: Denies any suicidal or homicidal ideation. Denies hallucinations. PHYSICAL EXAM GENERAL APPEARANCE: The patient is awake, alert, and oriented, acutely ill- appearing middle-aged female NEUROLOGICAL: Cranial nerves II-XII grossly intact. nonfocal exam. HEENT: Face is symmetric. Pupils are equal and reactive. Extraocular movements are intact. NECK: Supple. No JVD. No thyromegaly. CHEST: Normal chest expansion. No Telemetry. LUNGS: Absence of any rales, rhonchi or any wheezing. CARDIOVASCULAR: Regular. S1 and S2 normal. No appreciable rubs, murmurs or gallops. ABDOMEN: Soft, nontender, and nondistended. There is no rebound, voluntary guarding, or rigidity. : Deferred. No Patterson. EXTREMITIES: Non-edematous and not cyanotic. No clubbing. Good capillary refill. SKIN: No skin breakdown. Vital Signs (last 8hr) Date Time Temp Pulse Resp B/P (MAP) Pulse Ox O2 Delivery O2 Flow Rate FiO2 03/16/24 11:47 98.6 67 21 138/100 98 Room Air 03/16/24 07:54 98.4 64 16 119/63 100 Room Air LABS: Laboratory: Test 03/16/24 10:52 03/16/24 05:20 03/15/24 04:55 Range/Units Whole Blood Glucose 266 H 70-110 MG/DL White Blood Count 3.8 L 4.8-10.8 K/uL Red Blood Count 4.23 4.00-5.50 MIL/uL Hemoglobin 13.0 12.0-16.0 g/dL Hematocrit 38.2 36-48 % Mean Corpuscular Volume 90.3 79-99 fL Mean Corpuscular Hemoglobin 30.7 27.0-33.0 pg Mean Corpuscular Hemoglobin Concent 34.0 32.0-36.0 g/dL Red Cell Distribution Width 12.1 11.0-15.5 % Platelet Count 195 130-400 K/uL Mean Platelet Volume 10.5 7.5-10.5 fL Immature Granulocyte % (Auto) 0.5 0-1 % Neutrophils (%) (Auto) 35.5 L 40.0-77.0 % Lymphocytes (%) (Auto) 52.2 H 21.0-51.0 % Monocytes (%) (Auto) 7.6 3.0-13.0 % Eosinophils (%) (Auto) 3.9 0.0-8.0 % Basophils (%) (Auto) 0.3 0.0-5.0 % Neutrophils # (Auto) 1.4 L 1.8-7.7 K/uL Lymphocytes # (Auto) 2.0 1.0-4.8 K/uL Monocytes # (Auto) 0.3 0.1-1.0 K/uL Eosinophils # (Auto) 0.15 0.00-0.70 K/uL Basophils # (Auto) 0.01 0.00-0.20 K/uL Absolute Immature Granulocyte (auto 0.02 0-1 K/uL Nucleated Red Blood Cells 0.0 0.0-0.19 % Sodium Level 142 136-145 mmol/L Potassium Level 3.4 L 3.5-5.1 mmol/L Chloride Level 105 101-111 mmol/L Carbon Dioxide Level 27 21-32 mmol/L Blood Urea Nitrogen 9 7-18 mg/dL Creatinine 0.8 0.5-1.0 mg/dL Glomerular Filtration Rate Calc 94 >90 mL/min Random Glucose 243 H 70-105 mg/dL Total Calcium 8.4 L 8.5-10.1 mg/dL Magnesium Level 1.80 1.80-2.40 mg/dL Total Bilirubin 0.2 0.2-1.0 mg/dL Aspartate Amino Transf (AST/SGOT) 65 H 10-37 U/L Alanine Aminotransferase (ALT/SGPT) 98 H 12-78 U/L Alkaline Phosphatase 150 H 50-136 U/L Total Protein 6.2 6.0-8.3 g/dL Albumin 2.8 L 3.5-5.0 g/dL Hemoglobin A1c 11.7 H 4.0-6.0 % Estimated Average Glucose (eAG) 289 H 70-126 mg/dL Thyroid Stimulating Hormone (TSH) 0.70 0.36-3.74 uIU/mL Current Medications Medications (Trade) Dose Ordered Sig/Berenice Route PRN Reason Start Time Stop Time Status Last Admin Dose Admin Acetaminophen (TYLenol 325MG TAB) 650 mg Q6H PRN PO MILD PAIN (1-3) 03/12/24 19:30 04/11/24 19:29 03/15/24 09:46 650 MG Ceftriaxone Sodium (ROCEphine 1G INJ) 1 gm Q24H IVPB 03/13/24 16:00 03/15/24 11:02 DC 03/14/24 15:54 1 GM Dextrose (D50w) 50 ml AD PRN IV HYPOGLYCEMIA PROTOCOL 03/13/24 02:00 04/12/24 01:59 Glucagon (Glucagon 1mg Kit) 1 mg AD PRN IM HYPOGLYCEMIA PROTOCOL 03/13/24 02:00 04/12/24 01:59 Guaifenesin/ Dextromethorphan (RobiTUSSin DM 200/20MG 10ML) 10 ml Q6H PRN PO COUGH 03/13/24 05:00 04/12/24 04:59 03/16/24 10:49 10 ML Insulin Human Regular (humuLIN R 100 UNIT/ML 3ML) INSULIN SLIDING SCAL... ACHS SQ 03/13/24 07:30 04/12/24 07:29 03/16/24 12:19 10 UNIT Lactated Ringer's 1,000 ml @ 100 mls/hr Q10H IV 03/12/24 19:30 03/15/24 09:07 DC 03/14/24 19:31 100 MLS/HR Magnesium Sulfate 50 ml @ 0 mls/hr PROTOCOL PRN IV MAGNESIUM PROTOCOL 03/13/24 06:30 04/12/24 06:29 03/16/24 07:19 25 MLS/HR Morphine Sulfate (morPHINE 2MG SYG) 2 mg Q4H PRN IVP SEVERE PAIN (7-10) 03/12/24 19:30 03/15/24 11:02 DC 03/14/24 19:30 2 MG Ondansetron HCl (zoFRAN 4MG INJ) 4 mg Q6H PRN IV NAUSEA/VOMITING 03/12/24 19:30 04/11/24 19:29 03/15/24 01:19 4 MG Oseltamivir Phosphate (Tamiflu) 75 mg BID PO 03/13/24 09:00 03/15/24 09:07 DC 03/14/24 19:28 75 MG Potassium Chloride (K-Dur/Klor-Con 20meq) 20 meq AD PRN PO POTASSIUM PROTOCOL 03/14/24 13:00 04/13/24 12:59 03/16/24 07:19 20 MEQ Potassium Chloride (KCl 10% Elixir 20meq/15ml) 20 meq AD PRN PO POTASSIUM PROTOCOL 03/14/24 13:00 04/13/24 12:59 Tramadol HCl (UltRAM) 50 mg Q6H PRN PO MODERATE PAIN (4-6) 03/12/24 19:30 03/17/24 19:29 03/14/24 15:55 50 MG DIAGNOSTICS / RADIOLOGY: [ ] ASSESSMENT: Fever unknown origin, POA resolved Viral syndrome, POA Influenza A POA Dehydration, POA resolved Elevated lactic acid in the setting of dehydration, POA Type 2 diabetes with hyperglycemia POA A1c 11.2 hypomagnesemia POA elevated LFT's: most likely induced medication Tamiflu not POA Persistent headaches: resolved Moderate hepatic steatosis, the liver is mildly enlarged at 18 cm. nonadherence to medications: insulin POA PLAN: Admitting patient to medical-surgical floor IVF's:Heplock RUQ abd: noted MRCP CT head brain noted Discussed on modified diet: 1800 ada and exercising given to A1c 11.2 Insulin sliding scale per protocol; Hypoglycemia protocol Zofran as needed for nausea and vomiting Robitussin p.r.n. for cough DuoNeb x1. replace electrolytes as needed basis as per protocol Tylenol as needed for pain or fever CBC BMP in the morning all questions addressed ATTESTATION BY PHYSICIAN I have seen and examined the patient. I reviewed the documentation, medical decision making, and treatment plan as noted by the mid-level provider above. I agree with the findings and plan of care. YADY ADDISON MD, ELIZABETH NP Mar 16, 2024 14:41
[2024-03-16 16:00] VITALS: BP 118/72; PULSE 69; RESP 20; TEMP 98.2
[2024-03-16] MEDS: INSULIN humuLIN R 100 UNIT/ML 3ML SQ SCH (16:31)
--- NOTE | 2024-03-16 17:50 | NUR ---
pt stated she would be leaving [facility], educated pt on importance of staying, pt declined, iv removed
[2024-03-16] MEDS ORDERED: INSULIN GLARgine 100 UNITS/ML 10 ML VIAL SQ SCH (21:00)
--- NOTE | 2024-03-17 13:05 | DS ---
Discharge Summary Hospital Course Summary: This is a 43-year-old female that presents in ED with chief complaints fever chills flank pain. Urine was negative. Blood cultures in process. Patient is seen and examined. No family available at the bedside Denied chest pain or shortness for breath, she has had nausea and vomiting all day however. She has received Zofran on two occasions. No diarrhea. She was flu A positive 03/15/24 patient is seen and examined reviewed chart patient's LFTs elevated patient on Tamiflu we will be discontinued patient has been afebrile blood cultures negative over 48 hours. Patient denies abdominal pain chest pain or shortness for breath. 03/16/24 patient is seen and examined. Reviewed LFTs trending down. Right quad ultrasound Moderate hepatic steatosis, the liver is mildly enlarged at 18 cm. Get a MRCP. Presents a headaches resolved CT head was negative. Patient reports no abdominal pain. The patient is fully awake alert oriented x3. gladys ent with cough sounded congested DuoNeb x1. uncontrolled A1c [address] Jarrett for insulin regiment. Patient reports being on insulin but was unable to afford it was on metformin but discontinued due to GI disturbance THE PATIENT LEFT AMA Assessment/Plan: discharged dx's; Fever unknown origin, POA resolved Viral syndrome, POA Influenza A POA Dehydration, POA resolved Elevated lactic acid in the setting of dehydration, POA Type 2 diabetes with hyperglycemia POA A1c 11.2 hypomagnesemia POA elevated LFT's: most likely induced medication Tamiflu not POA Persistent headaches: resolved Moderate hepatic steatosis, the liver is mildly enlarged at 18 cm. nonadherence to medications: insulin POA PLAN: LEFT AMA: DATE OF SERVICES 03/16/24 ATTESTATION BY PHYSICIAN I have seen and examined the patient. I reviewed the documentation, medical decision making, and treatment plan as noted by the mid-level provider above. I agree with the findings and plan of care. YADY ADDISON MD, ELIZABETH NP Mar 17, 2024 13:05
== END 2024-03-16 18:00 | disposition left against medical advice (07) | DRG 194 ==
LOC: EDH 15:37 → EDHIP 15:38 → 3CH 23:01
PROVIDERS: ADMIT Hospitalist; ATTEND Hospitalist
DX: J10.1 Influenza due to other identified influenza virus with other respiratory manifestations (principal); E87.20 Acidosis, unspecified; E86.0 Dehydration; E11.65 Type 2 diabetes mellitus with hyperglycemia; E83.42 Hypomagnesemia; R79.89 Other specified abnormal findings of blood chemistry; K76.0 Fatty (change of) liver, not elsewhere classified; Z53.29 Procedure and treatment not carried out because of patient's decision for other reasons; Z87.442 Personal history of urinary calculi; Z91.148 Patient's other noncompliance with medication regimen for other reason
CPT/HCPCS: 36415; 70450; 71045; 74176; 76705; 80048; 80053; 80076; 81001; 82306; 82550; 82607; 82948; 83036; 83605; 83735; 84132; 84443; 84484; 85025; 86140; 87040; 87086; 87804; 93005; 96365; 96375; 99291; G0378; J0696; J1815; J2270; J2405; J3475; J7120

== ENCOUNTER 2024-07-29 08:43 | Emergency (ER) | payer SELFPAY ==
[~2024-07-29] VITALS: Ht 165.1 cm; Wt 88.0 kg
[2024-07-29] MEDS ORDERED: MELO-108 PO (09:16)
[2024-07-29] MEDS ORDERED: ACET-2079 PO (09:16)
[2024-07-29] MEDS ORDERED: AMOX1TAB16 PO (09:16)
--- NOTE | 2024-07-29 09:17 | ERN ---
General Chief Complaint: Headache Stated Complaint: HEADACHE Time Seen by MD: 08:52 History of Present Illness Initial Comments 44F, hx DM, presents for mouth pain increasing over the past 2 weeks. Pain to the upper palate. Started on the upper L side, now radiates to the L side of face. Also radiates to R. No fevers. Decreased PO intake due to pain. She reports that she's tried tylenol OTC and has taken amoxicillin without relief. Allergies: Coded Allergies: Penicillins (Verified Allergy, Unknown, 12/18/17) amoxicillin (Unverified Allergy, Unknown, 04/17/19) ibuprofen (Unverified Allergy, Unknown, 03/12/24) CAUSES NAUSEA/VOMITING Past Medical History Past Medical History: Diabetes-Type II, Other Medical History Other: GALLSTONES AND RENAL STONES Past Surgical History: Cholecystectomy Surgical History Other: TUBAL LIGATION Family History Family History: Negative Social History Social History: Smokers, Lives with family, Other ROS Dictation CONSTITUTIONAL: No chills, no fever, no weakness, no diaphoresis, no malaise. HEAD/FACE: No signs of trauma. EENT: Mouth and face pain RESPIRATORY: No cough, no orthopnea, no SOB, no stridor, no wheezing. CARDIOVASCULAR: No chest pain, no edema, no palpitations, no syncope. GASTROINTESTINAL/ABDOMINAL: No abdominal pain, no constipation, no diarrhea, no nausea, no vomiting. GENITOURINARY: No abnormal discharge, no dysuria, no frequent urination, no hematuria. No complaints of pain in the genitals. MUSCULOSKELETAL: No back pain, no gout, no joint pain, no joint swelling, no muscle pain, no muscle stiffness, no neck pain. INTEGUMENTARY: No change in color, no change in hair/nails, no dryness, no lesion, no lumps, no rash. NEUROLOGICAL/PSYCH: No anxiety, not depressed, no emotional problem, no headache, no numbness, no pre-existing deficit, no history of seizures, no tremors, no weakness. HEMATOLOGIC/LYMPHATIC: Not anemic, no history of blood clots, no apparent bleeding, no bruising, glands not swollen. All Systems Negative, Except as Noted. Physical Exam Physical Exam Dictation VITAL SIGNS: Reviewed. GENERAL APPEARANCE: Alert, oriented x3, moderate distress due to pain HEAD AND FACE: Non-traumatic. EYES: PERRL, pink conjunctivas, eyelid no trauma, anterior chamber clear. EARS: Pinnas intact and no signs of trauma or erythema. Ear canals clear and no discharge. TMs no erythema. NOSE: No discharge, no bleeding. OROPHARYNX: Poor dentition, palate pain, tongue pink. Pharynx clear, no erythema. Tonsils no exudates, no abscesses noted. Mucous membrane moist. NECK: Supple, non-tender, no thyromegaly, no masses, no JVD, no bruits. BREAST: Deferred. CHEST: No tenderness, no crepitus, no paradoxical movement, no retractions. LUNGS: Clear, well-ventilated, symmetric, no rales, no wheezing, no rhonchi, no stridor, good breath sounds bilaterally. HEART: Regular rate, regular rhythm, no murmur, no gallops. VASCULAR: No peripheral edema. ABDOMEN: Soft, positive bowel sounds, nondistended, no guarding, nontender, no rebound, no masses no hepatomegaly, no splenomegaly, no Guzmán's sign, no hernias. RECTAL: Deferred. GENITAL: Deferred. NEUROLOGICAL: Normal speech, gross motor function intact, gross sensory function intact. MUSCULOSKELETAL: Neck nontender, full range of motion, back nontender, full range of motion. EXTREMITIES: Nontender, full range of motion. SKIN: Color pink, dry, no turgor, no rash, no lacerations, no abrasions, no co ntusions. LYMPHATICS: Deferred. MDM CC: dental pain Historian: Patient Comorbidities: Diabetes Limitations by social determinants of health: Uninsured Differential diagnosis: Dental infection, she also appears to have a small mass on her palate which she says has been present for a couple of weeks now Vital signs are stable No labs or imaging indicated On clinical exam she does have a small mass in the top of her palate, I told her that has very important she follow up with the primary care doctor because she would likely need says biopsied. She also has poor dentition on the left side, I suspect she has a dental infection causing the pain. There was no signs of SIRS or sepsis. It appears to be located in the upper palate. Treatment: IM Toradol, p.o. [place] in the ER Plan: Augmentin, pain control, prescription for Tylenol three and meloxicam. ED Course Orders Procedure Category Date Status Time Ketorolac PHA 07/29/24 Transmitted Tromethamine 15mg/Ml 09:30 Hydrocodone/Apap PHA 07/29/24 Transmitted 5/325 ([place] 5/325mg) 09:30 Vital Signs Date Time Temp Pulse Resp B/P (MAP) Pulse Ox O2 Delivery O2 Flow Rate FiO2 07/29/24 08:45 98.8 75 20 148/92 98 0 DX & DISP Disposition: Discharge Departure Impression: Primary Impression: Mass of hard palate Additional Impression: Pain, dental Condition: Stable Scripts Meloxicam (Meloxicam) 15 Mg Tablet 15 MG PO DAILY PRN for PAIN for 10 Days, #10 TAB Prov: EVANGELIST KNAPP DO 07/29/24 Amoxicillin/Potassium Clav (Amox Tr-K Clv 875-125 mg Tab) 875 Mg-125 Mg Tablet 1 TAB PO BID for 10 Days, #20 TAB 0 Refills Prov: EVANGELIST KNAPP DO 07/29/24 Acetaminophen with Codeine (Acetaminophen-Cod #3 Tablet) 300 Mg-30 Mg Tablet 1 TAB PO TIDP PRN for pain for 7 Days, #20 TAB 0 Refills Prov: EVANGELIST KNAPP DO 07/29/24 Additional Instructions: Your pain may be related to a dental infection or a small mass on your hard palate. I have prescribed Tylenol three and meloxicam to take for pain. I have prescribed Augmentin, which is an antibiotic. Please take as prescribed. As we discussed, you will need to follow up with a dentist regarding the dental pain. I also highly recommend that you follow up with the primary provider since you have a small mass on your hard palate. This likely needs further studies. Please return to the emergency department if you have any concerns. Referrals: SELF,REFERRAL (PCP) EVANGELIST KNAPP DO July 29, 2024 09:17
[2024-07-29] MEDS: HYDROcodone/APAP 5/325 1 TAB TABLET PO ONE (09:18)
[2024-07-29] MEDS: ketOROlac 15MG/ML VIAL (15MG/ML) IM ONE (09:19)
[2024-07-29 10:06] VITALS: BP 133/79; PULSE 89; RESP 20; TEMP 98.3; O2SAT 98
== END 2024-07-29 10:07 | disposition home or self-care (01) ==
LOC: EDH 08:43
DX: K08.89 Other specified disorders of teeth and supporting structures (principal); K13.79 Other lesions of oral mucosa; E11.9 Type 2 diabetes mellitus without complications; F17.200 Nicotine dependence, unspecified, uncomplicated; Z88.0 Allergy status to penicillin; Z88.6 Allergy status to analgesic agent; Z90.49 Acquired absence of other specified parts of digestive tract; Z98.51 Tubal ligation status
CPT/HCPCS: 99283; 96372; J1885